=== PATIENT | male | born 1975 | race Caucasian/White ===

== ENCOUNTER 2020-06-10 12:52 | Inpatient (IN) | payer MEDICAID, OTHER ==
--- NOTE | 2020-06-10 13:41 | ED ---
Psych HPI - General Chief Complaint: Psychiatric Symptoms Stated Complaint: Mental Health Time Seen by Provider: 06/10/20 13:19 Source: patient, police Mode of arrival: ambulatory - History of Present Illness Initial Comments: Patient is a 44-year-old male presenting to emergency Department for psychiatric evaluation. Patient is petitioned by the shelter staff. Per officer, patient has been in shelter for several weeks and he has been delusional where he is rambling on and on with he symptoms. Patient was admitted be today he continues to have the similar behavioral patterns. Patient is apparently not diagnosed with any psychiatric conditions and does not take any psychiatric medications. Patient states he is here to Hospital because he has a "stitch in the abdomen that is coming out and it is infected." He denies any homicidal, suicidal thoughts or ideations at this time. - Related Data Home Medications Medication Instructions Recorded Confirmed No Known Home Medications 06/10/20 06/10/20 Allergies Allergy/AdvReac Type Severity Reaction Status Date / Time Penicillins Allergy Swelling Verified 06/10/20 14:32 Review of Systems ROS Statement: Those systems with pertinent positive or pertinent negative responses have been documented in the HPI. ROS Other: All systems not noted in ROS Statement are negative. 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 History of Any Multi-Drug Resistant Organisms: None Reported Past Surgical History: No Surgical Hx Reported Past Anesthesia/Blood Transfusion Reactions: No Reported Reaction Past Psychological History: ADD/ADHD Smoking Status: Former smoker Past Alcohol Use History: None Reported Past Drug Use History: None Reported - Past Family History Mother Family Medical History: Cancer Additional Family Medical History / Comment(s): BREAST General Exam Limitations: no limitations General appearance: alert, in no apparent distress Head exam: Present: atraumatic, normocephalic, normal inspection Eye exam: Present: normal appearance, PERRL, EOMI Pupils: Present: normal accommodation. Absent: unequal, miosis ENT exam: Present: normal exam, normal oropharynx, mucous membranes moist, TM's normal bilaterally, normal external ear exam Neck exam: Present: normal inspection, full ROM. Absent: tenderness Respiratory exam: Present: normal lung sounds bilaterally. Absent: respiratory distress, wheezes, rales Cardiovascular Exam: Present: regular rate, normal rhythm, normal heart sounds GI/Abdominal exam: Present: soft (No signs of infection.). Absent: distended, tenderness, guarding Extremities exam: Present: normal inspection, full ROM, normal capillary refill. Absent: tenderness Back exam: Present: normal inspection, full ROM. Absent: tenderness, CVA tenderness (R), CVA tenderness (L) Neurological exam: Present: alert, oriented X3, CN II-XII intact, normal gait Psychiatric exam: Present: normal affect Skin exam: Present: warm, dry, intact, normal color. Absent: rash Course Vital Signs 06/10/20 12:57 Temperature 98.0 F Pulse Rate 74 Respiratory 18 Rate Blood Pressure 152/85 O2 Sat by Pulse 97 Oximetry Medical Decision Making - Medical Decision Making patient is a 44-year-old male presenting to the emergency department for psychiatric evaluation. Patient is currently in shelter and has been delusional according to the facility staff. Physical examination is unremarkable. Patient continues rambling about unrelated subjects. EPS evaluated patient and will admit for further psychiatric management. Patient is petition. completed a certification. Patient given Ativan and Geodon. UA unremarkable. Urine drug screen positive for marijuana. - Lab Data Lab Results 06/10/20 Range/Units 14:36 Urine Color Yellow Urine Appearance Clear (Clear) Urine pH 6.0 (5.0-8.0) Ur Specific [place] 1.022 (1.001-1.035) Urine Protein Negative (Negative) Urine Glucose (UA) Negative (Negative) Urine Ketones Negative (Negative) Urine Blood Negative (Negative) Urine Nitrite Negative (Negative) Urine Bilirubin Negative (Negative) Urine Urobilinogen <2.0 (<2.0) mg/dL Ur Leukocyte Esterase Negative (Negative) Urine Opiates Screen Not Detected (NotDetected) Ur Oxycodone Screen Not Detected (NotDetected) Urine Methadone Screen Not Detected (NotDetected) Ur Propoxyphene Screen Not Detected (NotDetected) Ur Barbiturates Screen Not Detected (NotDetected) U Tricyclic Antidepress Not Detected (NotDetected) Ur Phencyclidine Scrn Not Detected (NotDetected) Ur Amphetamines Screen Not Detected (NotDetected) U Methamphetamines Scrn Not Detected (NotDetected) U Benzodiazepines Scrn Not Detected (NotDetected) Urine Cocaine Screen Not Detected (NotDetected) U Marijuana (THC) Screen Detected H (NotDetected) Disposition Clinical Impression: Acute psychosis Disposition: ADMITTED IP TO THIS HOSP Condition: Fair Is patient prescribed a controlled substance at d/c from ED?: No Referrals: None,Stated [Primary Care Provider] - 1-2 days Time of Disposition: 17:18
[2020-06-10 14:49] LABS: Appearance,Urine Clear (Clear); Bilirubin,Urine Negative (Negative); Blood,Urine Negative (Negative); Color,Urine Yellow; Glucose,Urine (UA) Negative (Negative); Ketones,Urine Negative (Negative); Leukocyte Esterase,Urine Negative (Negative); Nitrite,Urine Negative (Negative); Protein,Urine Negative (Negative); Specific Gravity,Urine 1.022 (1.001-1.035); Urobilinogen,Urine <2.0 mg/dL (<2.0)
[2020-06-10 15:02] LABS: Amphetamine Screen,Urine Not Detected (NotDetected); Barbiturate Screen,Urine Not Detected (NotDetected); Benzodiazepines Screen,Urine Not Detected (NotDetected); Cocaine Screen,Urine Not Detected (NotDetected); Methadone Screen, Urine Not Detected (NotDetected); Opiate Screen,Urine Not Detected (NotDetected); Oxycodone Screen, Urine Not Detected (NotDetected); Phencyclidine Screen,Urine Not Detected (NotDetected); Tricyclic Antidepressant,Urine Not Detected (NotDetected); Urn Cannabinoid Scrn Detected (NotDetected)
[2020-06-10] MEDS ORDERED: ZIPRASIDONE 20 MG VIAL IM STA (17:16)
[2020-06-10] MEDS ORDERED: LORazepam 2 MG/ML INJ IM STA (17:16)
[2020-06-10] MEDS ORDERED: LORazepam 1 MG TAB PO PRN (19:42)
[2020-06-10] MEDS ORDERED: ZIPRASIDONE 20 MG VIAL IM PRN (19:42)
[2020-06-10] MEDS ORDERED: MAGNESIUM HYDROXIDE 2,400 MG/10 ML CUP PO PRN (19:42)
[2020-06-10] MEDS ORDERED: ACETAMINOPHEN TAB 325 MG TAB PO PRN (19:42)
[2020-06-10] MEDS ORDERED: MAG HYDROX/AL HYDROX/SIMETH 30 ML CUP PO PRN (19:42)
[2020-06-10] MEDS ORDERED: LORazepam 2 MG/ML INJ IM PRN (19:47)
--- NOTE | 2020-06-10 21:01 | P.HPIM ---
History of Present Illness H&P Date: 06/10/20 Patient is a 44-year-old male with a PMH of tobacco abuse, marijuana abuse, and mild intermittent asthma who was brought into the emergency room from senior care due to strange behavior. The patient was reportedly delusional and was rambling. He was admitted to the mental health unit where he was evaluated earlier today. The patient reported feeling well. When asked about his previous medical conditions, he denied any history including asthma. He reported smoking one pack of cigarettes daily for the past few decades with last cigarette one week ago prior to his incarceration. Also reported smoking marijuana daily until his incarceration. Denied any additional complaints. Denied chest pain, shortness of breath, fever, chills, cough. Also denied nausea, vomiting, abdominal pain, or diarrhea. Denied taking any medications at home. Review of Systems Pertinent positives and negatives as discussed in HPI, a complete review of systems was performed and all other systems are negative. 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 History of Any Multi-Drug Resistant Organisms: None Reported Past Surgical History: No Surgical Hx Reported Past Anesthesia/Blood Transfusion Reactions: No Reported Reaction Past Psychological History: ADD/ADHD Smoking Status: Former smoker Past Alcohol Use History: None Reported Past Drug Use History: None Reported - Past Family History Mother Family Medical History: Cancer Additional Family Medical History / Comment(s): BREAST Medications and Allergies Home Medications Medication Instructions Recorded Confirmed Type No Known Home Medications 06/10/20 06/10/20 History Allergies Allergy/AdvReac Type Severity Reaction Status Date / Time Penicillins Allergy Swelling Verified 06/10/20 14:32 Physical Exam Vitals: Vital Signs Temp Pulse Resp BP Pulse Ox 06/10/20 12:57 98.0 F 74 18 152/85 97 Intake and Output 06/10/20 06/10/20 06/10/20 06:59 14:59 22:59 Other: Weight 63.503 kg General: non toxic, no distress, appears at stated age, normal weight Derm: no unusual rashes/lesions no unusual ecchymoses, warm, dry Head: atraumatic, normocephalic, symmetric Eyes: EOMI, no lid lag, anicteric sclera, pupils equal round reactive to light ENT: Nose and ears atraumatic, no thrush, no pharyngeal erythema Neck: No thyromegaly, no cervical lymphadenopathy, trachea midline, supple Mouth: no lip lesion, mucus membranes moist Cardiovascular: S1S2 reg, no murmur, positive posterior tibial pulse bilateral, no edema, capillary refill less than 2 seconds Lungs: CTA bilateral, no rhonchi, no rales , no accessory muscle use Abdominal: soft, nontender to palpation, no guarding, no appreciable orga nomegaly, normal bowel sounds Ext: no gross muscle atrophy, muscle strength 5 out of 5 in all 4 extremities grossly, no contractures, Neuro: CN II-XI grossly intact, light touch intact all 4 extremities, finger to nose within normal limits, Psych: Alert, oriented, guarded affect Results Labs: Abnormal Lab Results - Last 24 Hours (Table) 06/10/20 Range/Units 14:36 U Marijuana (THC) Screen Detected H (NotDetected) Assessment and Plan Plan: Tobacco and marijuana abuse -Advised on the importance of cessation -Nicotine patch when necessary Psychosis -As per psychiatry Thank you for allowing us to participate in the care of this patient. We will follow peripherally. Do not hesitate to contact us with questions. Someone can be reached from the [facility] [place] [place] at all hours of the day at [phone].
[2020-06-10] MEDS: NICOTINE 14MG/24HR PATCH TRANSDERM SCH (21:13)
[2020-06-11] MEDS: NICOTINE 14MG/24HR PATCH TRANSDERM SCH (08:51)
[2020-06-11 09:24] LABS: Basophils # (A) 0.1 k/uL (0-0.2); Basophils % (A) 1 %; Eosinophils # (A) 0.1 k/uL (0-0.7); Eosinophils % (A) 1 %; HCT 48.2 % (39.0-53.0); HGB 15.7 gm/dL (13.0-17.5); Lymphocytes # (A) 2.3 k/uL (1.0-4.8); Lymphocytes % (A) 25 %; MCH 29.6 pg (25.0-35.0); MCHC 32.7 g/dL (31.0-37.0); MCV 90.6 fL (80.0-100.0); Mean Platelet Volume 7.6; Monocytes # (A) 0.4 k/uL (0-1.0); Monocytes % (A) 4 %; Neutrophils # (A) 6.3 k/uL (1.3-7.7); Neutrophils % (A) 67 %; Platelet Count 293 k/uL (150-450); RBC 5.32 m/uL (4.30-5.90); RDW 13.8 % (11.5-15.5); WBC 9.3 k/uL (3.8-10.6)
[2020-06-11 09:33] LABS: ALT 20 U/L (4-49); AST 22 U/L (17-59); African American GFR (CKD) >90 (>60 ml/min/1.73 sqM); Albumin 4.3 g/dL (3.5-5.0); Alkaline Phosphatase 65 U/L (38-126); Anion Gap 10 mmol/L; Blood Urea Nitrogen 18 mg/dL (9-20); Calcium 9.5 mg/dL (8.4-10.2); Carbon Dioxide 23 mmol/L (22-30); Chloride 107 mmol/L (98-107); Cholesterol 176 mg/dL (<200); Glucose 189 mg/dL (74-99); HDL Cholesterol 63 mg/dL (40-60); LDL Cholesterol,Calculated 90 mg/dL (0-99); Non-African American GFR(CKD) >90 (>60 ml/min/1.73 sqM); Potassium 4.8 mmol/L (3.5-5.1); Sodium 140 mmol/L (137-145); Total Bilirubin 0.4 mg/dL (0.2-1.3); Total Protein 6.8 g/dL (6.3-8.2); Triglycerides 116 mg/dL (<150)
--- NOTE | 2020-06-11 12:09 | CT ---
EXAMINATION TYPE: CT brain wo con DATE OF EXAM: 06/11/2020 COMPARISON: None. HISTORY: First episode psychosis CT DLP: 1028 mGycm. Automated Exposure Control for Dose Reduction was Utilized. TECHNIQUE: CT scan of the head is performed without contrast. FINDINGS: There is no acute intracranial hemorrhage, mass effect, or midline shift identified. The ventricles and sulci are within normal limits in size. Carbajal-white matter differentiation is maintai porsche. Mild to moderate mucosal thickening in the periphery of the left frontal sinus. Mild mucosal thi ckening throughout the ethmoid sinuses bilaterally. Fairly severe mucosal thickening in the right max illary sinus. Globes are intact bilaterally. IMPRESSION: No acute intracranial hemorrhage or midline shift is seen.
--- NOTE | 2020-06-11 12:10 | P.HP ---
Psychiatric H&P - . H&P Date: 06/11/20 History & Physical: Allergies Allergy/AdvReac Type Severity Reaction Status Date / Time Penicillins Allergy Swelling Verified 06/10/20 14:32 Vital Signs Temp 98.1 F 06/11/20 06:57 Pulse 73 06/11/20 06:57 Resp 16 06/11/20 06:57 BP 112/71 06/11/20 06:57 Pulse Ox 97 06/10/20 21:50 Intake & Output 06/10/20 06/11/20 06/11/20 18:59 06:59 18:59 Weight 63.503 kg 56.4 kg Laboratory Last Values WBC 9.3 k/uL (3.8-10.6) 06/11/20 09:00 RBC 5.32 m/uL (4.30-5.90) 06/11/20 09:00 Hgb 15.7 gm/dL (13.0-17.5) 06/11/20 09:00 Hct 48.2 % (39.0-53.0) 06/11/20 09:00 MCV 90.6 fL (80.0-100.0) 06/11/20 09:00 MCH 29.6 pg (25.0-35.0) 06/11/20 09:00 MCHC 32.7 g/dL (31.0-37.0) 06/11/20 09:00 RDW 13.8 % (11.5-15.5) 06/11/20 09:00 Plt Count 293 k/uL (150-450) 06/11/20 09:00 Neutrophils % 67 % 06/11/20 09:00 Lymphocytes % 25 % 06/11/20 09:00 Monocytes % 4 % 06/11/20 09:00 Eosinophils % 1 % 06/11/20 09:00 Basophils % 1 % 06/11/20 09:00 Neutrophils # 6.3 k/uL (1.3-7.7) 06/11/20 09:00 Lymphocytes # 2.3 k/uL (1.0-4.8) 06/11/20 09:00 Monocytes # 0.4 k/uL (0-1.0) 06/11/20 09:00 Eosinophils # 0.1 k/uL (0-0.7) 06/11/20 09:00 Basophils # 0.1 k/uL (0-0.2) 06/11/20 09:00 Sodium 140 mmol/L (137-145) 06/11/20 09:00 Potassium 4.8 mmol/L (3.5-5.1) 06/11/20 09:00 Chloride 107 mmol/L (98-107) 06/11/20 09:00 Carbon Dioxide 23 mmol/L (22-30) 06/11/20 09:00 Anion Gap 10 mmol/L 06/11/20 09:00 BUN 18 mg/dL (9-20) 06/11/20 09:00 Creatinine 0.86 mg/dL (0.66-1.25) 06/11/20 09:00 Est GFR (CKD-EPI)AfAm >90 (>60 ml/min/1.73 sqM) 06/11/20 09:00 Est GFR (CKD-EPI)NonAf >90 (>60 ml/min/1.73 sqM) 06/11/20 09:00 Glucose 189 mg/dL (74-99) H 06/11/20 09:00 Calcium 9.5 mg/dL (8.4-10.2) 06/11/20 09:00 Total Bilirubin 0.4 mg/dL (0.2-1.3) 06/11/20 09:00 AST 22 U/L (17-59) 06/11/20 09:00 ALT 20 U/L (4-49) 06/11/20 09:00 Alkaline Phosphatase 65 U/L (38-126) 06/11/20 09:00 Total Protein 6.8 g/dL (6.3-8.2) 06/11/20 09:00 Albumin 4.3 g/dL (3.5-5.0) 06/11/20 09:00 Triglycerides 116 mg/dL (<150) 06/11/20 09:00 Cholesterol 176 mg/dL (<200) 06/11/20 09:00 LDL Cholesterol, Calc 90 mg/dL (0-99) 06/11/20 09:00 HDL Cholesterol 63 mg/dL (40-60) H 06/11/20 09:00 TSH 1.830 mIU/L (0.465-4.680) 06/11/20 09:00 Urine Color Yellow 06/10/20 14:36 Urine Appearance Clear (Clear) 06/10/20 14:36 Urine pH 6.0 (5.0-8.0) 06/10/20 14:36 Ur Specific [place] 1.022 (1.001-1.035) 06/10/20 14:36 Urine Protein Negative (Negative) 06/10/20 14:36 Urine Glucose (UA) Negative (Negative) 06/10/20 14:36 Urine Ketones Negative (Negative) 06/10/20 14:36 Urine Blood Negative (Negative) 06/10/20 14:36 Urine Nitrite Negative (Negative) 06/10/20 14:36 Urine Bilirubin Negative (Negative) 06/10/20 14:36 Urine Urobilinogen <2.0 mg/dL (<2.0) 06/10/20 14:36 Ur Leukocyte Esterase Negative (Negative) 06/10/20 14:36 Urine Opiates Screen Not Detected (NotDetected) 06/10/20 14:36 Ur Oxycodone Screen Not Detected (NotDetected) 06/10/20 14:36 Urine Methadone Screen Not Detected (NotDetected) 06/10/20 14:36 Ur Propoxyphene Screen Not Detected (NotDetected) 06/10/20 14:36 Ur Barbiturates Screen Not Detected (NotDetected) 06/10/20 14:36 U Tricyclic Antidepress Not Detected (NotDetected) 06/10/20 14:36 Ur Phencyclidine Scrn Not Detected (NotDetected) 06/10/20 14:36 Ur Amphetamines Screen Not Detected (NotDetected) 06/10/20 14:36 U Methamphetamines Scrn Not Detected (NotDetected) 06/10/20 14:36 U Benzodiazepines Scrn Not Detected (NotDetected) 06/10/20 14:36 Urine Cocaine Screen Not Detected (NotDetected) 06/10/20 14:36 U Marijuana (THC) Screen Detected (NotDetected) H 06/10/20 14:36 06/11/20 12:03 IDENTIFYING DATA: Patient is a 44-year-old male who is currently homeless coming from local halfway single has no kids unemployed. HPI: Patient presented to the hospital transferred from the local halfway on petition by halfway staff for delusional thinking and rambling along with bizarre thoughts. Patient was evaluated in the ER and admitted to not having a specific psychiatric diagnosis and not being on any psychiatric medications. According to ER report patient stated that he was in the hospital for having a "stitch in the abdomen that is coming out". Patient was positive for THC on his UDS and a negative UA. Patient was admitted to mental health for for further evaluation and treatment. Patient was seen today and appeared to have poor hygiene and grooming however was directable and agreeable therapist speech in the office. He claims that he has been in halfway for 7-8 days however did not elaborate why he was in halfway and what the charges were. She had pressured speech, endorsed paranoia and was grandiose. Patient had several loosely formed delusions. He claims that the government will be "dumping money into this facility and I want him to do it". He rambles and was illogical at times. He spoke about his sister going on the news to speak about the hospital. He also claims that at the Police Department "they didn't know what to do with me I was ripping the place out". Claims that he needs anger management and does not take any medications. Patient claimed that his mood is "fine" and denies any anxiety today. He states that his sleep and appetite are fair. He denies any nightmares. Patient denies any suicidal or homicidal ideations intent or plan. At this time patient denies any auditory or visual hallucinations. Patient has a flight of ideas. Patient admits to using marijuana as listed above does smoke cigarettes. PAST PSYCHIATRIC HISTORY: Patient states that he does not have a formal psychiatric diagnosis. Patient denies being on any psychiatric medications. He did state that he was in a psychiatric hospital over 20 years ago for a overdose on his medications. Patient denies any psychiatric outpatient follow-up. PMH: GERD and asthma ALLERGIES: as per EMR CHEMICAL DEPENDENCY HISTORY: as per HPI FAMILY PSYCHIATRIC/SUBSTANCE USE HISTORY: denies SOCIAL HISTORY: Patient was born and raised in [facility] and claims that he did some college. He is currently homeless and unemployed has no kids and was coming from the local halfway. Patient does have a extensive legal history however is not able to elaborate on it MENTAL STATUS EXAM: General Appearance: Patient appears to be stated age is short in stature, several tattoos , alert, difficult to redirect loud and impulsive. Patient appears to have poor hygiene and grooming. Behavior: Patient is seated without any agitated behavior. Loud and impulsive. Speech: Patient's speech is pressured Mood/Affect: Patient reports their mood is "okay", affect is congruent and labile Suicidality/Homicidality: Patient denies having any homicidal ideation intent or plan. Denies any suicidal ideations intent or plan Perceptions: Patient denies any visual hallucinations and denies any auditory hallucinations Though content/process: Patient is endorsing several loosely formed delusions, grandiosity. Bizarre content. Rambles. Tangential/circumstantial. Memory and concentration: AOX3, grossly intact for the purposes of this session. Can spell "WORLD" backwards Judgment and insight: poor/impulsive STRENGTHS/WEAKNESSES: strength is that patient is resilient. Weakness is that patient has poor judgment and is impulsive INTELLECT: average IMPRESSIONS: Psychosis unspecified Cannabis use disorder Nicotine dependence PLAN: -Patient is admitted under involuntary status to MHU for stabilization of psychiatric symptoms and safety. Patient has not signed medication consent and is placed in patient's chart. A second certification was completed and along with petition will be filed for court. -Medications : Will start patient on Abilify 5 mg daily for mood stabilization/psychosis. Plan to titrate up as needed. -Ativan and Geodon PRN for agitation/aggression -Patient was counselled on substance abuse and expressed no desire to cut back on his use -Patient was informed of the risks, benefits and side effects of the medication and patient verbally consented to taking the medications. Patient signed med consent form and was placed in chart. -Internal Medicine consult to perform medical evaluation and physical. -NRT - nicotine patch -SW on board for discharge planning. Encourage patient to participate in groups to work on coping skills. Patient is on a halfway hold and will be discharged back to halfway once he is psychiatrically stabilized. We'll await for deferral and full court hearing. 06/11/20 12:07
[2020-06-11] MEDS: ARIPiprazole 5 MG TAB PO SCH ×2 (12:19→12:22)
[2020-06-12] MEDS: NICOTINE 14MG/24HR PATCH TRANSDERM SCH (09:01)
[2020-06-12] MEDS: ARIPiprazole 5 MG TAB PO SCH (09:01)
--- NOTE | 2020-06-12 10:21 | P.PN ---
Progress Note - Text Progress Note Date: 06/12/20 Interval History: Patient was seen today for psychiatric follow-up and when marketing writer entered frederic rosario's room he was laying down rambling loudly and speaking to himself. Patient was directable and agreeable to speak with marketing writer in the office. Patient continues to have pressured speech, racing thoughts and endorsed several delusions. He continues to state that he is "not getting any answers" as to what he is charged with and why he is not hospital. He continues to endorse grandiosity did speak about his family and their power. He also continues to threaten the hospital financially. He also spoke about his "[place] heritage". Patient was loose in associations and illogical at times. Difficult to redirect in conversation. He states that he slept well last night and has a fair appetite. When asked about his medications he states that "I don't need that I'm not a psych patient" and patient has not been taking his medications. At this time patient denies any suicidal or homical ideations, intent or plan. Patient denies any auditory, visual hallucinations and denies any paranoia or delusions. Mental Status Exam: General Appearance: Patient appears to be stated age is short in stature, several tattoos, alert, difficult to redirect loud and impulsive. Patient appears to have poor hygiene and grooming. Behavior: Patient is seated without any agitated behavior. Loud and impulsive. Speech: Patient's speech is pressured, flight of ideas. Mood/Affect: Patient reports their mood is "ok", affect is congruent and labile Suicidality/Homicidality: Patient denies having any homicidal ideation intent or plan. Denies any suicidal ideations intent or plan Perceptions: Patient denies any visual hallucinations and denies any auditory hallucinations Though content/process: Patient is endorsing several loosely formed delusions, grandiosity. Bizarre content. Rambles. Tangential/circumstantial. Memory and concentration: AOX3, grossly intact for the purposes of this session Judgment and insight: poor/impulsive Assessment Psychosis unspecified Cannabis use disorder Nicotine dependence Plan: -Patient continues to meet criteria for inpatient psychiatric admission for symptom stabilization and safety. Patient has not signed medication consent and was placed in patient's chart. -Medications: Continue with Abilify 5 mg daily for mood stabilization/psychosis. Patient is currently not taking medications. -When necessary Ativan and Geodon for agitation/aggression. -NRT - nicotine patch -SW on board for discharge planning. Encouraged the patient to participate in milieu. Patient is on a group home hold and will be discharged back to group home once he is psychiatrically stabilized. We'll await for deferral and full court hearing.
[2020-06-12] MEDS ORDERED: ZIPRASIDONE 20 MG VIAL IM ONE (15:37)
[2020-06-13] MEDS: NICOTINE 14MG/24HR PATCH TRANSDERM SCH (09:14)
[2020-06-13] MEDS: ARIPiprazole 5 MG TAB PO SCH (09:14)
--- NOTE | 2020-06-13 10:34 | P.PN ---
Progress Note - Text Progress Note Date: 06/13/20 Interval History: Patient was seen today sitting in all group and was directable and agreeable to speak with check writer in the office. Patient appeared to be mildly calmer and more polite with check writer initially however patient continues to have pressured speech, racing thoughts and endorsed several delusions. He continues to endorse grandiosity. He spoke about his father being corrupt with the police department. He also spoke about "[place] wars". He spoke also about being in the hospital for "protective custody" and believing that there are other conspiracies against him. Patient was getting loud at times and pointing several times at check writer and at the ground. He also spoke about his "[place] heritage". Patient was loose in associations and illogical at times. Difficult to redirect in conversation. He states that he slept well last night and has a fair appetite. He is continuing to refuse medications while on the unit. At this time patient denies any suicidal or homical ideations, intent or plan. Patient denies any auditory, visual hallucinations and denies any paranoia or delusions. Mental Status Exam: General Appearance: Patient appears to be stated age is short in stature, several tattoos, alert, difficult to redirect loud and impulsive. Patient appears to have poor hygiene and grooming. Behavior: Patient is seated without any agitated behavior. Loud and impulsive. Speech: Patient's speech is pressured, flight of ideas. Mood/Affect: Patient reports their mood is "fine", affect is incongruent and labile Suicidality/Homicidality: Patient denies having any homicidal ideation intent or plan. Denies any suicidal ideations intent or plan Perceptions: Patient denies any visual hallucinations and denies any auditory hallucinations Though content/process: Patient is endorsing several loosely formed delusions, grandiosity. Bizarre content. Rambles. Tangential/circumstantial. Memory and concentration: AOX3, grossly intact for the purposes of this session Judgment and insight: poor/impulsive Assessment Psychosis unspecified Cannabis use disorder Nicotine dependence Plan: -Patient continues to meet criteria for inpatient psychiatric admission for symptom stabilization and safety. Patient has not signed medication consent and was placed in patient's chart. -Medications: Continue with Abilify 5 mg daily for mood stabilization/psychosis. Patient is currently not taking medications. -When necessary Ativan and Geodon for agitation/aggression. -NRT - nicotine patch -SW on board for discharge planning. Encouraged the patient to participate in milieu. Patient is on a correction hold and will be discharged back to correction once he is psychiatrically stabilized. Patient will have deferral date set for today.
[2020-06-14] MEDS: ARIPiprazole 5 MG TAB PO SCH (09:22)
[2020-06-14] MEDS: NICOTINE 14MG/24HR PATCH TRANSDERM SCH (09:22)
[2020-06-14] MEDS: OLANZapine 10 MG TAB PO SCH ×2 (15:16→21:49)
--- NOTE | 2020-06-14 22:04 | PN ---
PROGRESS NOTE DATE OF SERVICE: 06/14/2020. CHIEF COMPLAINT: The patient was petitioned by care home staff for delusional thinking and bizarre thoughts. INTERVAL HISTORY: The patient has been doing fair. He continues to show significant psychotic thinking. He had a fairly intense day yesterday. He comes out on the unit. He wanders about. He will frequently talk about different issues much of which seems to be delusional. At times, he will have some fairly intense self talk. He attends groups though he tends to be disconnected from much of what is discussed in groups. He has required p.r.n.'s. He slept fair last night. Today he has been up. He continues to wander about. I refer the reader to the group note of the exercise leisure education group of this morning for documentation of his function and thought process in the group. When I talked to the patient, he rambled at length about any number of issues he was having. It was difficult to follow his train of thought. He made references to suing the hospital and other issues about a past surgery. He made references to having turned in "bad entry level sales consultant." He acknowledges that he has not been taking medications, feeling he did not really need them, though he was willing to consider medications by the end of our discussion. MENTAL STATUS: Patient was quite restless. He spoke spontaneously and rambled about 1 issue or another. He had flight of ideas and loose association. He jumped from subject to subject. It was very difficult to follow his train of thought. His affect was intense. His mood dysphoric. He was somewhat distressed. He continues to show delusional thinking with paranoia. It was difficult to assess for thoughts of harm to self or others. He seemed to be oriented and aware of his situation and surroundings. ASSESSMENT: I will continue the current diagnosis and treatment plan. We will continue to make efforts to engage the patient in individual and group therapeutic activities. The patient was engrained to take medications and then as such I started the patient on Zyprexa 10 mg twice a day. He has not been taking the Abilify. He has significant psychotic symptoms and thus I would push for more sorted doses of antipsychotic. I reviewed the medication issues with the patient. I talked about indication and namely to help his thought process and discussed potential side effects including making some brief references to metabolics and movement disorder. The patient did not clearly keep up with the conversation, so I tended to keep that part of the discussion limited. We will focus on stabilization and discharge planning. CALLY / MILEN: [id number] /
[2020-06-15] MEDS: OLANZapine 10 MG TAB PO SCH (08:55)
[2020-06-15] MEDS: NICOTINE 14MG/24HR PATCH TRANSDERM SCH (08:55)
[2020-06-15] MEDS ORDERED: OLANZapine 10 MG TAB PO ONE (16:00)
--- NOTE | 2020-06-15 16:50 | PN ---
PROGRESS NOTE DATE OF SERVICE: 06/15/2020. CHIEF COMPLAINT: The patient was petition by [facility] staff for delusional thinking and bizarre thoughts. INTERVAL HISTORY: Patient has been doing fair. He continues to show significant distress and psychotic thinking. Yesterday, he was out in the day area. Much of the time he will wander about the unit. He will interact with others. He has attended some of the groups, though at times he can be somewhat intense and needing staff support to stay on track. He said he slept well last night. Today, he has been up. He has not attended 3 of the groups so far today though was on his way to the last group of the day. He continues to be focused on hoping to be discharged soon. When he talks about circumstances of his coming into the hospital, he is adamant about the idea that he was not hallucinating and that all that he believed he observed was real. I had a telephone contact with the patient's aunt with whom he was living. Her name is Janice Rossi ). She notes that the patient was showing significant psychotic symptoms over a considerable period of time when he was living with her. She ended up having to have him move out of the home because of the risks to his cousin's children who were in the house. She noted that he had bizarre behavior like crawling under the tables, talking about a conspiracy sees and militias. He talked about how he was in protective custody. He notes that he would get quite intense and agitated when he would get into issues related to his perceived experiences. For the patient's part, when I talked to him, he was quite insistent on the idea that all of what he talked about was real and that he was in fact not hallucinating. He did make the statement that he could understand his aunt would be concerned because he was in protective custody, but she was not and thus she might be in some perceived danger. For the patient's part, he said he has had some headache today and a few other vague symptoms that he thought might relate to the medication. On the other hand, he said he was comfortable continuing to take the medication. When I talked about the option of a long-acting injectable, he was accepting of that as well. He appears to tolerate his psychotropic medications. MENTAL STATUS: Patient was quite restless. He talked quite a bit during the interview. He rambled and went into all sorts of thoughts about the delusional material he has been referring to. He had pressured speech and flight of ideas. His affect was intense. A few different points during the interview, he had an angry manner, though he would come out of that fairly calm. His mood was dysphoric. He was significantly distressed. He had delusional thoughts. At one point when I was talking to his Aunt on the telephone, he had his head down and was seemingly deeply engaged in a conversation with himself. He did not voice thoughts of harm to self or others, though he does express paranoid delusions which could potentially create risks in regard to harm. He was oriented and alert. ASSESSMENT: I will continue the current diagnosis and treatment plan. I will increase the patient's Zyprexa to 15 mg twice a day. In addition, I will start the patient on Invega 6 mg a day. The aim of Invega is to switch him over to a long-acting injectable. Patient continues to show significant psychotic symptoms. At this point, I feel it is appropriate to be assertive with medications and continue him on 2 antipsychotic medications until we see some progression and improvement with his medications. It is noteworthy that when the patient learned that his aunt was uncomfortable at this point with his coming to live there, he said he would accept being in the hospital longer to make sure everything was okay with his aunt. He said if he needed to be in the hospital another week he could see that would not be unreasonable. He has been cooperative with his medications. We will focus on stabilization and discharge planning. MMODL / MILEN: [id number] /
[2020-06-15] MEDS: PALIPERIDONE 6 MG TAB.ER.24 PO SCH (16:56)
[2020-06-15] MEDS: OLANZapine 5 MG TAB PO SCH (21:58)
[2020-06-16] MEDS: NICOTINE 14MG/24HR PATCH TRANSDERM SCH (10:14)
[2020-06-16] MEDS: PALIPERIDONE 6 MG TAB.ER.24 PO SCH (10:15)
[2020-06-16] MEDS: OLANZapine 5 MG TAB PO SCH (10:15)
--- NOTE | 2020-06-16 10:37 | P.PN ---
Progress Note - Text Progress Note Date: 06/16/20 Interval History: Patient was seen today in his room and was directable and agreeable to speak w ith greeting card writer. Patient continues to ramble, have racing thoughts and endorsed several delusions. He continues to be grandiose and his thought content. 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 He continues to be demanding about his medications and claims that he does not need medications even though he was "tricked into signing that form" by his grades 1 6 tutor. Patient has been taking medications as of yesterday and this morning. Patient claims that the Zyprexa was making him too tired and was agreeable to have it reduced. He continues to endorse paranoia and is impulsive. Patient was getting loud at times. Patient was loose in associations and illogical at times. Difficult to redirect in conversation. He states that he slept well last night and has a fair appetite but feels oversedated today. At this time patient denies any suicidal or homical ideations, intent or plan. Patient denies any auditory, visual hallucinations and denies any paranoia or delusions. Mental Status Exam: General Appearance: Patient appears to be stated age is short in stature, severa l tattoos, alert, difficult to redirect loud and impulsive. Patient appears to have poor hygiene and grooming. Behavior: Patient is seated without any agitated behavior. Loud and impulsive. Speech: Patient's speech is pressured, flight of ideas. Mood/Affect: Patient reports their mood is "fine", affect is incongruent and labile Suicidality/Homicidality: Patient denies having any homicidal ideation intent or plan. Denies any suicidal ideations intent or plan Perceptions: Patient denies any visual hallucinations and denies any auditory hallucinations Though content/process: Patient is endorsing several loosely formed delusions, grandiosity. Bizarre content. Rambles. Tangential/circumstantial. Memory and concentration: AOX3, grossly intact for the purposes of this session Judgment and insight: poor/impulsive Assessment Psychosis unspecified Cannabis use disorder Nicotine dependence Plan: -Patient continues to meet criteria for inpatient psychiatric admission for symptom stabilization and safety. Patient has not signed medication consent and was placed in patient's chart. Patient ended up deferring cord and agreeing to treatment. -Medications: Continue with paliperidone 6 mg daily mood stabilization/psychosis. Zyprexa was decreased down to 5 mg daily at bedtime for mood stabilization/insomnia. -When necessary Ativan and Geodon for agitation/aggression. -NRT - nicotine patch -SW on board for discharge planning. Encouraged the patient to participate in milieu. Patient is on a assisted hold and will be discharged back to assisted once he is psychiatrically stabilized. Patient ended up deferring cord and agreeing to treatment.
[2020-06-16] MEDS ORDERED: OLANZapine 5 MG TAB PO SCH (21:00)
[2020-06-17 04:53] VITALS: RESP 16
[2020-06-17] MEDS: NICOTINE 14MG/24HR PATCH TRANSDERM SCH (08:47)
[2020-06-17] MEDS: PALIPERIDONE 6 MG TAB.ER.24 PO SCH (08:47)
[2020-06-17] MEDS ORDERED: PALIPERIDONE 3 MG TAB.ER.24 PO STA (13:22)
--- NOTE | 2020-06-17 13:28 | P.PN ---
Progress Note - Text Progress Note Date: 06/17/20 Interval History: Patient was seen today in his room and was directable and agreeable to speak w ith copywriter. Patient continues to ramble, have racing thoughts today however this has been improving and patient has been demonstrating less flight of ideas. Patient continues to be preoccupied with his father doing "illegal things" and patient appears to be more directable today and calmer with copywriter. Patient also appeared to be more agreeable to taking medication and states that he has been sleeping better at nighttime and does not feel over sedated today. Patient reached into his belongings and took out several pictures that he wanted to show copywriter of his brother and his family members. Patient has been taking medications as of yesterday and this mornin. Patient more goal oriented and less paranoid today. Difficult to redirect in conversation. He states that he slept well last night. At this time patient denies any suicidal or homical ideations, intent or plan. Patient denies any auditory, visual hallucinations and denies any paranoia or delusions. Mental Status Exam: General Appearance: Patient appears to be stated age is short in stature, several tattoos, alert, difficult to redirect. Patient appears to have improving hygiene and grooming. Behavior: Patient is seated without any agitated behavior. Mildly more directable today and less impulsive. Speech: Patient's speech is pressured, flight of ideas, improving mildly. Mood/Affect: Patient reports their mood is "fine", affect is incongruent Suicidality/Homicidality: Patient denies having any homicidal ideation intent or plan. Denies any suicidal ideations intent or plan Perceptions: Patient denies any visual hallucinations and denies any auditory hallucinations Though content/process: Patient is endorsing several loosely formed delusions, grandiosity, improving mildly today. Rambles. Tangential/circumstantial. Memory and concentration: AOX3, grossly intact for the purposes of this session Judgment and insight: poor/impulsive, improving mildly Assessment Psychosis unspecified Cannabis use disorder Nicotine dependence Plan: -Patient continues to meet criteria for inpatient psychiatric admission for symptom stabilization and safety. Patient has not signed medication consent and was placed in patient's chart. Patient ended up deferring cord and agreeing to treatment. -Medications: increased paliperidone 9 mg daily mood stabilization/psychosis. Zyprexa was decreased down to 2.5 mg daily at bedtime for mood stabilization/insomnia. -When necessary Ativan and Geodon for agitation/aggression. -NRT - nicotine patch -SW on board for discharge planning. Encouraged the patient to participate in milieu. Patient is on a residential hold and will be discharged back to residential once he is psychiatrically stabilized. Patient ended up deferring court and agreeing to treatment.
[2020-06-17] MEDS ORDERED: OLANZapine 2.5 MG TAB PO SCH (21:00)
[2020-06-18] MEDS: PALIPERIDONE 3 MG TAB.ER.24 PO SCH (09:12)
[2020-06-18] MEDS: NICOTINE 14MG/24HR PATCH TRANSDERM SCH (09:12)
--- NOTE | 2020-06-18 10:00 | P.PN ---
Progress Note - Text Progress Note Date: 06/18/20 Interval History: Patient was seen today near the medication window and appeared to be yelling and agitated towards the medication nurse. Patient was yelling and was furious that she had to take his medications as morning and refused to open up his palm and show the nurse is mouth after taking the medication. Patient was fairly irritable and yelling down the hallway however was directable and agreeable to speak to screen writer in the office. Patient was hyperverbal, tangential and grandiose today. He was threatening to mohini the hospital and screen writer several times for not giving him a covid test. He appeared to be impulsive and intrusive today. He continues to endorse delusions and was demanding discharge and also for the medication nurse to be reprimanded. Patient was not able to answer appropriately about his mood or his night last night with sleep. Patient continued to ramble and was difficult to redirect today and was informed that his medications will be increased. Patient demanded to speak with his intellectual property lawyer and left the interview abruptly. At this time patient denies any suicidal or homical ideations, intent or plan. Patient denies any auditory, visual hallucinations Mental Status Exam: General Appearance: Patient appears to be stated age is short in stature, several tattoos, alert, difficult to redirect. Patient appears to have improving hygiene and grooming. Behavior: Patient is seated without any agitated behavior. Loud, argumentative and impulsive. Speech: Patient's speech is pressured, flight of ideas Mood/Affect: Patient reports their mood is "ok", affect is incongruent and labile today Suicidality/Homicidality: Patient denies having any homicidal ideation intent or plan. Denies any suicidal ideations intent or plan Perceptions: Patient denies any visual hallucinations and denies any auditory hallucinations Though content/process: Patient is endorsing several loosely formed delusions, grandiosity, Rambles. Tangential/circumstantial. Focused on medication nurse. Memory and concentration: AOX3, grossly intact for the purposes of this session Judgment and insight: poor/impulsive Assessment Psychosis unspecified Cannabis use disorder Nicotine dependence Plan: -Patient continues to meet criteria for inpatient psychiatric admission for symptom stabilization and safety. Patient has not signed medication consent and was placed in patient's chart. Patient ended up deferring cord and agreeing to treatment. -Medications: Continue with paliperidone 9 mg daily mood stabilization/psychosis. Zyprexa was discontinued. Will start Depakene liquid 250 mg twice a day for mood stabilization/aggression. -When necessary Ativan and Geodon for agitation/aggression. -NRT - nicotine patch -SW on board for discharge planning. Encouraged the patient to participate in milieu. Patient is on a snf hold and will be discharged back to snf once he is psychiatrically stabilized. Patient ended up deferring court and agreeing to treatment. If patient begins to refuse medications then we'll need to file a demand for hearing immediately.
[2020-06-18] MEDS: VALPROIC ACID ORAL SOLN 250 MG/5 ML CUP PO SCH ×2 (10:23→20:29)
[2020-06-19] MEDS: VALPROIC ACID ORAL SOLN 250 MG/5 ML CUP PO SCH ×2 (08:39→20:46)
[2020-06-19] MEDS: NICOTINE 14MG/24HR PATCH TRANSDERM SCH (08:39)
[2020-06-19] MEDS: PALIPERIDONE 3 MG TAB.ER.24 PO SCH (08:39)
[2020-06-19] MEDS: haloperidoL 5 MG TAB PO SCH ×2 (12:54→20:47)
[2020-06-19] MEDS: BENZTROPINE MESYLATE 1 MG TAB PO SCH ×2 (12:54→20:47)
--- NOTE | 2020-06-19 14:31 | PN ---
PROGRESS NOTE DATE OF SERVICE: 06/19/2020 CHIEF COMPLAINT: The patient was petitioned by prison staff for delusional thinking and bizarre thoughts. INTERVAL HISTORY: Patient continues to be quite intense with psychotic and manic symptoms. He showed continued ups and downs in his mood yesterday. He has periods where he gets quite intense. He is loud much of the time, he wanders the unit. He attended one group yesterday, a note from the group states "patient required increased verbal redirection to engage in appropriate topics of conversation and engage in activities. Patient was inconsistently redirectable." It was documented the patient slept 7 hours last night, today he has been up he continues the same. He wonders about, he gets intense. At times he can have some limited appropriate interactions, at other times he tends to go off in random talk that does not connect to the issues at hand. He continues to have periods of getting loud. He still talks about being in prison as protective custody. He was uncertain about prison issues, though did seem to understand the some point that he would be returning to prison. He talked at length about an idea that his commercial attorney will get his charges dismissed. He also stated that if he had to go back to prison, he would be able to have an employer that he works for boyd him out. He tolerates his psychotropic medications. MENTAL STATUS: Patient sat with quite a bit a restlessness, he gave good eye contact. He talked quite a bit. He had pressured speech and flight of ideas. He made various comments that were tangential. He did respond to some questions appropriately. For the most part he talked in complete sentences. His speech was coherent and goal directed, though for the most part his thoughts were disconnected from the subject at hand. He did; however, seem to pay some attention to discussion of medications and was willing to make appropriate changes. His affect was intense, his mood elevated. He showed moderate degree of distress. He continues to show paranoid thinking and other delusional thoughts. He voiced no thoughts of harm to self or others. Cognition was clear. ASSESSMENT: I will continue the current diagnosis and treatment plan. We had contact with the prison indicating that as far as a long-acting injectable, the only medications that they can manage would be Haldol Decanoate and Prolixin Decanoate. At this point I will switch the patient from Invega to Haldol with the intention of initiating Haldol Decanoate that would be the first step towards aiming the patient back towards outpatient care, which will be through the prison. I will discontinue Invega and start Haldol 10 mg twice a day. I will add Cogentin 1 mg twice a day as well. He continues on Depakote 250 mg twice a day. Highly likely that is a subtherapeutic level, though given that were initiating Haldol, I will defer any changes that medication. I briefly discussed medications with the patient to the extent that he could follow the conversation. We did review issues about movement disorder and metabolic. The patient was in agreement with both short-term use of oral medication. He understood the need was to be sure he is not allergic to the medication. He understood that we would anticipate initiating a long-acting injectable to which he was in agreement. Will focus on stabilization and discharge planning. CALLY / DAIVE: [id number] /
[2020-06-20 07:09] VITALS: BP 121/64; PULSE 67; TEMP 97.8
[2020-06-20] MEDS: BENZTROPINE MESYLATE 1 MG TAB PO SCH ×2 (09:45→20:09)
[2020-06-20] MEDS: VALPROIC ACID ORAL SOLN 250 MG/5 ML CUP PO SCH ×2 (09:46→20:09)
[2020-06-20] MEDS: NICOTINE 14MG/24HR PATCH TRANSDERM SCH (09:46)
[2020-06-20] MEDS: haloperidoL 5 MG TAB PO SCH ×2 (09:46→20:10)
--- NOTE | 2020-06-20 11:43 | PN ---
PROGRESS NOTE DATE OF SERVICE: 06/20/2020 CHIEF COMPLAINT: The patient was petitioned by group home staff for delusional thinking and bizarre thoughts. INTERVAL HISTORY: Patient has been doing fair. He was in his usual state yesterday. He comes out in the day area. He wanders about, he can be loud at times and get intense. He attended one group yesterday. He was characterized as "bizarre, disheveled, animated, tangential, monopolizing, ruminative." He slept well last night, today he has been up, he again has been out in the day area. Staff have noted today that he seems a little quieter and calmer than he has been. He was started on Haldol 10 mg twice a day yesterday in anticipation of receiving Haldol Decanoate. He has not had any problems with the start of the medication. When I saw him today, his first question was asking if I had heard anything about group home. I shared that my understanding is that he will return to group home. It was noteworthy that he said he is in group home because of home invasion. He said that is a strange charge given that it was his home that he was going into. He says he does have some legal support in that regard. It is noteworthy that he did not make any statement all about being in group home due to protective custody. He seemed to accept his situation and understood that when he leaves the hospital he will be returning to group home. He asked when he could anticipate going back to group home. I shared with him that I would suspect it would be until the middle of next week. He had no concern about that. He tolerates his psychotropic medications. MENTAL STATUS: The patient sat with a little restlessness, he gave good eye contact. He answered questions appropriately. His thoughts were clear. His affect was somewhat intense, though less so than previously. His mood was even. He seemed a little distressed, though not to a significant degree. It was noteworthy that he did not voice any clear thoughts that were delusional. He voiced no thoughts of harm. Cognition was clear. ASSESSMENT: I will continue the current diagnosis and treatment plan. I will initiate Haldol Decanoate 200 mg IM tomorrow. He has tolerated the Haldol oral without difficulties. He may be showing some early signs of response to Haldol with less delusional thinking. I had a telephone consultation with Dr. Jackson at [facility] in regard to dosing. Dr. Jackson felt very strongly that it is critical in a patient such as Mr. Washington that he get to a therapeutic blood level as soon as possible and that generally higher doses of Haldol Decanoate are well-tolerated. He notes that if he does have EPS symptoms, they are most likely to occur within the first three days of initiation, so we will have the opportunity to follow him and assess for EPS. Dr. Jackson also noted there are significant risks to patients who are on subtherapeutic for antipsychotic medications. Given the patient's psychosis as well as manic presentations plus the fact that he seems to be showing some early signs of improvement from 20 mg g daily of oral Haldol I would assess that benefits of the recommended dose of Haldol Decanoate far outweigh risks as noted. I would anticipate discharging the patient probably by middle of next week. We will focus on stabilization and discharge planning. CALLY / DAVIE: [id number] / MTDD
[2020-06-21] MEDS: VALPROIC ACID ORAL SOLN 250 MG/5 ML CUP PO SCH ×2 (09:47→21:15)
[2020-06-21] MEDS: BENZTROPINE MESYLATE 1 MG TAB PO SCH ×2 (09:47→21:15)
[2020-06-21] MEDS: NICOTINE 14MG/24HR PATCH TRANSDERM SCH (09:47)
[2020-06-21] MEDS: haloperidoL 5 MG TAB PO SCH ×2 (09:47→21:15)
[2020-06-21] MEDS ORDERED: HALOPERIDOL DECANOATE 100 MG/ML 1 ML VIAL IM ONE ×2 (10:00→14:00)
--- NOTE | 2020-06-21 10:25 | P.PN ---
Progress Note - Text Progress Note Date: 06/21/20 Interval history: Patient was seen in his bedroom and was directable and agreeable to speak with scenario writer. Patient just received his Haldol Decanoate. He is not endorsing any problems with the IM medication at this time. At this time patient denies any suicidal or homicidal ideations intent or plan. Denies any Auditory or visual hallucinations. Patient denies any side effects from the medications and has been compliant with meds. He does endorse significant paranoia. He became hyperverbal and agitated when discussing his father and how his father has been involved in illegal activities including drug smuggling. He also reports that his father and the chief deputy court clerk have been working together. He states that he is upset that he is conservative long-term hold. He is wondering if he is able to avoid long-term by staying here longer. He showed a number to this provider which she states is for an FBI agent. Mental status exam: General Appearance: Patient appears to be stated age is alert, directable, and cooperative. Behavior: Patient became agitated when discussing his father. Psychomotor activity became elevated. Patient began pacing and showed a phone number for "the FBI." Speech: Patient's speech is fluent and nonpressured. Mood/Affect: Mood is "okay." Affect is initially calm but later intense and expansive. Suicidality/Homicidality: Patient denies having any suicidal or homicidal ideation intent or plan. Perceptions: Patient denies any auditory or visual hallucinations. Though content/process: Paranoid delusions are evident. Flight of ideas. Illogical. Memory and concentration: AOX3, grossly intact for the purposes of this session Judgment and insight: Poor Assessment/Plan: Continue with current diagnosis. Patient continues to meet criteria for inpatient psychiatric admission for symptom stabilization and safety. Patient received Haldol decanoate today. We will continue his current medication regimen. Monitor for medication compliance and for any psychotropic medication side effects. Will continue to monitor ongoing response to treatment. Encouraged participation in milieu.
[2020-06-22] MEDS: BENZTROPINE MESYLATE 1 MG TAB PO SCH ×2 (09:38→20:16)
[2020-06-22] MEDS: haloperidoL 5 MG TAB PO SCH ×2 (09:38→20:16)
[2020-06-22] MEDS: VALPROIC ACID ORAL SOLN 250 MG/5 ML CUP PO SCH ×2 (09:39→20:16)
--- NOTE | 2020-06-22 10:12 | P.PN ---
Progress Note - Text Progress Note Date: 06/22/20 Interval history: Patient was seen wandering the hallways and was directable and agreeable to speak with service writer advisor. Patient reports that he is feeling well after receiving the injection yesterday. He is not reporting any significant side effects. In regards to his delusions, patient reports that they do not bother him as much today, and that he will have to keep them "more under wraps." At this time patient denies any suicidal or homicidal ideations intent or plan. Denies any Auditory or visual hallucinations. Patient denies any side effects from the medications and has been compliant with meds. Mental status exam: General Appearance: Patient appears to be stated age is alert, directable, and cooperative. Behavior: No agitated behavior. Patient is calm and directable Speech: Patient's speech is fluent and nonpressured. Mood/Affect: Mood is improving mildly, affect is congruent and constricted. Suicidality/Homicidality: Patient denies having any suicidal or homicidal ideation intent or plan. Perceptions: Patient denies any auditory or visual hallucinations. Though content/process: Mild delusional thought content but less forthcoming today. Memory and concentration: AOX3, grossly intact for the purposes of this session Judgment and insight: improving mildly Assessment/Plan: Continue with current diagnosis. Patient continues to meet criteria for inpatient psychiatric admission for symptom stabilization and safety.Patient will be maintained on current psychotropic medication regimen. Monitor for medication compliance and for any psychotropic medication side effects. Will continue to monitor ongoing response to treatment. Encouraged participation in milieu.
[2020-06-23] MEDS: VALPROIC ACID ORAL SOLN 250 MG/5 ML CUP PO SCH (08:29)
[2020-06-23] MEDS: haloperidoL 5 MG TAB PO SCH ×2 (08:29→20:07)
[2020-06-23] MEDS: BENZTROPINE MESYLATE 1 MG TAB PO SCH ×2 (08:29→20:07)
--- NOTE | 2020-06-23 11:33 | P.PN ---
Progress Note - Text Progress Note Date: 06/23/20 Interval History: Patient was seen today laying in his bed in his room and was directable and ag reeable to speak to her in the office. Patient appears to be more appropriate sba underwriter today and appears to be less delusional and less aggressive/hostile with sba underwriter during the interview. Patient continues to make some statements about him being wrongfully accused and that his case will be "thrown out" and that [facility] will [facility] to [facility]. He appears to demonstrate better impulse control today. He was more friendly with sba underwriter and spoke about his weekend. He states that he is feeling better with regard to his mood and feels less labile. He states that he is able to sleep approximately 6-7 hours last night. Patient was agreeable to have his medications changed off of the liquid and onto the pills. He claims to have improving energy during the day. At this time patient denies any suicidal or homical ideations, intent or plan. Patient denies any auditory, visual hallucinations. Patient has been taking his medications as prescribed. Mental Status Exam: General Appearance: Patient appears to be stated age is short in stature, several tattoos, alert, more directable today, attempts to be polite. Patient appears to have improving hygiene and grooming. Behavior: Patient is seated without any agitated behavior. Speech: Patient's speech rate has improved. Mood/Affect: Patient reports their mood is "better", affect is congruent, less labile. Suicidality/Homicidality: Patient denies having any homicidal ideation intent or plan. Denies any suicidal ideations intent or plan Perceptions: Patient denies any visual hallucinations and denies any auditory hallucinations Though content/process: Patient Rambles. Tangential/circumstantial, improving. No delusions today. Memory and concentration: AOX3, grossly intact for the purposes of this session Judgment and insight: Improving mildly. Assessment Psychosis unspecified Cannabis use disorder Nicotine dependence Plan: -Patient continues to meet criteria for inpatient psychiatric admission for symptom stabilization and safety. Patient has not signed medication consent and was placed in patient's chart. Patient ended up deferring court and agreeing to treatment. -Medications: Will switch to PO Depakote 500 mg QHS for mood stabilization/aggression. Continue with Haldol 10 mg twice a day for psychosis/mood stabilization. Continue Cogentin 1 mg twice a day for EPS prophylaxis. -When necessary Ativan and Geodon for agitation/aggression. -NRT - nicotine patch -SW on board for discharge planning. Encouraged the patient to participate in milieu. [facility] is [facility] and will be discharged back to [facility] once he is psychiatrically stabilized. Patient ended up deferring court and agreeing to treatment. Patient will likely be discharged tomorrow.
[2020-06-23] MEDS ORDERED: DIVALPROEX ER 500 MG TAB.ER.24H PO SCH (21:00)
--- NOTE | 2020-06-24 08:22 | P.DS ---
Providers Date of admission: 06/10/20 19:33 Expected date of discharge: 06/24/20 Attending physician: Abiodun Muir MD Consults: 06/10/20 19:42 Consult Physician Routine Consulting Provider: Mandi Physician Consult Reason/Comments: H&P and medical Do you want consulting provider notified?: Yes Primary care physician: Stated None - Discharge Diagnosis(es) (1) Unspecified psychosis Current Visit: Yes Status: Acute Priority: High (2) Cannabis abuse Current Visit: Yes Status: Acute Priority: Medium (3) Nicotine dependence Current Visit: Yes Status: Acute Priority: Low Hospital Course: Admission HPI: Admission was completed by marine underwriter "Patient is a 44-year-old male who is currently homeless coming from local [facility] single has no kids unemployed. Patient presented to the hospital transferred [facility] the [facility] on petition by [facility] staff for delusional thinking and rambling along with bizarre thoughts. Patient was evaluated in the ER and admitted to not having a specific psychiatric diagnosis and not being on any psychiatric medications. According to ER report patient stated that he was in the hospital for having a "stitch in the abdomen that is coming out". Patient was positive for THC on his UDS and a negative UA. Patient was admitted to mental health for for further evaluation and treatment. Patient was seen today and appeared to have poor hygiene and grooming however was directable and agreeable parts data writer in the office. He claims that he has been in [facility] for 7-8 days however did not elaborate why he was in [facility] and what the charges were. She had pressured speech, endorsed paranoia and was grandiose. Patient had several loosely formed delusions. He claims that the government will be "dumping money into this facility and I want him to do it". He rambles and was illogical at times. He spoke about his sister going on the news to speak about the hospital. He also claims that at the [facility] "they didn't know what to do with me I was ripping the place out". Claims that he needs anger management and does not take any medications. Patient claimed that his mood is "fine" and denies any anxiety today. He states that his sleep and appetite are fair. He denies any nightmares." Hospital course: Upon admission to the unit patient was initially loud, aggressive and hostile. Patient was initially resistant to treatment/medications however and is up signing deferral and began taking medication on the unit. Patient got along well with other patients on the unit and followed unit protocol. Patient was compliant with the medications and denied any side effects throughout hospital course. Patient was initially started on paliperidone which patient did not improve his symptoms. Patient was then switched to Haldol by mouth and titrated up to a dose of 10 mg twice a day for psychosis/mood stabilization. Patient was also started on Cogentin 1 mg twice a day for EPS prophylaxis. Patient was also started on Depakote ER 750 mg daily at bedtime for mood stabilization/aggression.. Patient spoke of his stressors and engaged in therapy both group and individual. Patient was also seen by medical team for history and physical exam. Patient received a brain CT scan on 06/11/2020 which showed no acute intracranial hemorrhage or midline shift. Throughout the course of the hospitalization patient gradually improved with regards to mood lability, aggression, sleep and became future oriented with improved insight and judgment. On the day of discharge patient denied any suicidal or homicidal ideations intent or plan denied any auditory or visual hallucinations. Patient endorsed wanting to live for future and his family. Patient denied any paranoia and did not endorse any delusions. Patient does have a significant history of substance abuse and was counseled on abstaining from all substances including alcohol and marijuana. Patient wanted to cut back marijuana use on his own at this time. Patient was also counseled on the medications and need for regular compliance and was encouraged to follow-up with their outpatient appointment for mental health and also for primary care. As patient came from [facility], patient was placed on a [facility] hold until discharge date and will be discharged to police custody. Mental status exam: General Appearance: Patient appears to be stated age is alert, directable, and cooperative. Patient is in no acute distress and has improved hygiene and grooming Behavior: Patient is calmly seated without any agitated behavior. Speech: Patient's speech is fluent and nonpressured. Mood/Affect: Patient reports their mood is "good", affect is congruent and euthymic. Suicidality/Homicidality: Patient denies having any suicidal or homicidal ideation intent or plan. Perceptions: Patient denies any auditory or visual hallucinations. Though content/process: There is no evidence of any delusional thought content and thought process is linear and goal-directed. Memory and concentration: AOX3, grossly intact for the purposes of this session. Can spell "WORLD" backwards correctly. Judgment and insight: chronically poor, however has improved with guarded prognosis Impression: Psychosis unspecified, rule out bipolar disorder albert with psychotic features Cannabis use disorder Nicotine dependence Plan: -Continue with discharge today as patient has improved and stabilized psychiatrically and is not currently an imminent threat to himself and/or others. Patient will remain at chronically elevated risk for harm to self and/or others due to his impulsivity and substance abuse. -Continue medications: Continue Depakote by mouth 750 mg daily at bedtime for m ood stabilization/aggression, Haldol 10 mg twice a day for psychosis/mood stabilization, Cogentin 1 mg twice a day for EPS prophylaxis. -Patient was counseled on the need for medication compliance and appropriate follow-up at mental health and also primary care for medical issues. Patient verbalized understanding and agreed. -Social work to arrange for patient to be discharged to police custody upon discharge from the mental health unit. Social work also to arrange for patients follow up appointments for psychiatric care along with follow up with primary care provider. -Patient counseled on abstaining from recreational drugs and marijuana and alcohol. Was informed/educated on the adverse effects on their physical and mental health. Patient verbally agreed and understood. Patient was offered substance abuse treatment however declined at this time. -Patient was instructed to return to the hospital or seek immediate medical care if their psychiatric or medical symptoms do worsen or reoccur. Allergies Allergy/AdvReac Type Severity Reaction Status Date / Time Penicillins Allergy Swelling Verified 06/10/20 14:32 Laboratory Results WBC 9.3 k/uL (3.8-10.6) 06/11/20 09:00 RBC 5.32 m/uL (4.30-5.90) 06/11/20 09:00 Hgb 15.7 gm/dL (13.0-17.5) 06/11/20 09:00 Hct 48.2 % (39.0-53.0) 06/11/20 09:00 MCV 90.6 fL (80.0-100.0) 06/11/20 09:00 MCH 29.6 pg (25.0-35.0) 06/11/20 09:00 MCHC 32.7 g/dL (31.0-37.0) 06/11/20 09:00 RDW 13.8 % (11.5-15.5) 06/11/20 09:00 Plt Count 293 k/uL (150-450) 06/11/20 09:00 Neutrophils % 67 % 06/11/20 09:00 Lymphocytes % 25 % 06/11/20 09:00 Monocytes % 4 % 06/11/20 09:00 Eosinophils % 1 % 06/11/20 09:00 Basophils % 1 % 06/11/20 09:00 Neutrophils # 6.3 k/uL (1.3-7.7) 06/11/20 09:00 Lymphocytes # 2.3 k/uL (1.0-4.8) 06/11/20 09:00 Monocytes # 0.4 k/uL (0-1.0) 06/11/20 09:00 Eosinophils # 0.1 k/uL (0-0.7) 06/11/20 09:00 Basophils # 0.1 k/uL (0-0.2) 06/11/20 09:00 Sodium 140 mmol/L (137-145) 06/11/20 09:00 Potassium 4.8 mmol/L (3.5-5.1) 06/11/20 09:00 Chloride 107 mmol/L (98-107) 06/11/20 09:00 Carbon Dioxide 23 mmol/L (22-30) 06/11/20 09:00 Anion Gap 10 mmol/L 06/11/20 09:00 BUN 18 mg/dL (9-20) 06/11/20 09:00 Creatinine 0.86 mg/dL (0.66-1.25) 06/11/20 09:00 Est GFR (CKD-EPI)AfAm >90 (>60 ml/min/1.73 sqM) 06/11/20 09:00 Est GFR (CKD-EPI)NonAf >90 (>60 ml/min/1.73 sqM) 06/11/20 09:00 Glucose 189 mg/dL (74-99) H 06/11/20 09:[address] Glu mg/dL 126 06/11/20 09:00 Hemoglobin A1c 6.0 % (4.0-6.0) 06/11/20 09:00 Calcium 9.5 mg/dL (8.4-10.2) 06/11/20 09:00 Total Bilirubin 0.4 mg/dL (0.2-1.3) 06/11/20 09:00 AST 22 U/L (17-59) 06/11/20 09:00 ALT 20 U/L (4-49) 06/11/20 09:00 Alkaline Phosphatase 65 U/L (38-126) 06/11/20 09:00 Total Protein 6.8 g/dL (6.3-8.2) 06/11/20 09:00 Albumin 4.3 g/dL (3.5-5.0) 06/11/20 09:00 Triglycerides 116 mg/dL (<150) 06/11/20 09:00 Cholesterol 176 mg/dL (<200) 06/11/20 09:00 LDL Cholesterol, Calc 90 mg/dL (0-99) 06/11/20 09:00 HDL Cholesterol 63 mg/dL (40-60) H 06/11/20 09:00 TSH 1.830 mIU/L (0.465-4.680) 06/11/20 09:00 Urine Color Yellow 06/10/20 14:36 Urine Appearance Clear (Clear) 06/10/20 14:36 Urine pH 6.0 (5.0-8.0) 06/10/20 14:[address] 1.022 (1.001-1.035) 06/10/20 14:36 Urine Protein Negative (Negative) 06/10/20 14:36 Urine Glucose (UA) Negative (Negative) 06/10/20 14:36 Urine Ketones Negative (Negative) 06/10/20 14:36 Urine Blood Negative (Negative) 06/10/20 14:36 Urine Nitrite Negative (Negative) 06/10/20 14:36 Urine Bilirubin Negative (Negative) 06/10/20 14:36 Urine Urobilinogen <2.0 mg/dL (<2.0) 06/10/20 14:36 Ur Leukocyte Esterase Negative (Negative) 06/10/20 14:36 Urine Opiates Screen Not Detected (NotDetected) 06/10/20 14:36 Ur Oxycodone Screen Not Detected (NotDetected) 06/10/20 14:36 Urine Methadone Screen Not Detected (NotDetected) 06/10/20 14:36 Ur Propoxyphene Screen Not Detected (NotDetected) 06/10/20 14:36 Ur Barbiturates Screen Not Detected (NotDetected) 06/10/20 14:36 U Tricyclic Antidepress Not Detected (NotDetected) 06/10/20 14:36 Ur Phencyclidine Scrn Not Detected (NotDetected) 06/10/20 14:36 Ur Amphetamines Screen Not Detected (NotDetected) 06/10/20 14:36 U Methamphetamines Scrn Not Detected (NotDetected) 06/10/20 14:36 U Benzodiazepines Scrn Not Detected (NotDetected) 06/10/20 14:36 Urine Cocaine Screen Not Detected (NotDetected) 06/10/20 14:36 U Marijuana (THC) Screen Detected (NotDetected) H 06/10/20 14:36 Vital Signs Temp 97.8 F 06/20/20 07:08 Pulse 67 06/20/20 07:08 Resp 16 06/20/20 07:08 BP 121/64 06/20/20 07:08 Pulse Ox 98 06/17/20 04:53 Patient Condition at Discharge: Stable Plan - Discharge Summary New Discharge Prescriptions: New Benztropine Mesylate [Cogentin] 1 mg PO BID 30 Days tab Divalproex ER [Depakote ER] 750 mg PO DAILY 30 Days tab.er.24h haloperidoL [Haldol] 10 mg PO BID 30 Days tab Acetaminophen Tab [Tylenol] 650 mg PO Q4HR PRN tab PRN Reason: Pain/Discomfort Discharge Medication List Acetaminophen Tab [Tylenol] 650 mg PO Q4HR PRN tab 06/24/20 [Rx] Benztropine Mesylate [Cogentin] 1 mg PO BID 30 Days tab 06/24/20 [Rx] Divalproex ER [Depakote ER] 750 mg PO DAILY 30 Days tab.er.24h 06/24/20 [Rx] haloperidoL [Haldol] 10 mg PO BID 30 Days tab 06/24/20 [Rx] Follow up Appointment(s)/Referral(s): None,Stated [Primary Care Provider] - 1-2 days Activity/Diet/Wound Care/Special Instructions: Activity and diet as tolerated. Avoid the use of street drugs and alcohol. Take all medications as prescribed. When you are in need of refills on your medications please contact your medical provider and/or outpatient psychiatrist to have this done. Please go to scheduled outpatient appointment for aftercare treatment. If symptoms return or become worse, call the crisis line at and/or go to the nearest emergency room for evaluation. Discharge Disposition: OTHER INSTITUTION NOT DEFINED
[2020-06-24] MEDS: BENZTROPINE MESYLATE 1 MG TAB PO SCH (11:23)
[2020-06-24] MEDS: haloperidoL 5 MG TAB PO SCH (11:23)
== END 2020-06-24 15:20 | disposition home or self-care (01) | DRG 885 ==
LOC: EC 12:52 → 3MHU 19:33
PROVIDERS: ADMIT Psychiatry & Neurology Psychiatry; ATTEND Psychiatry & Neurology Psychiatry
DX: F23 Brief psychotic disorder (principal); G25.9 Extrapyramidal and movement disorder, unspecified; F12.10 Cannabis abuse, uncomplicated; F17.210 Nicotine dependence, cigarettes, uncomplicated; F90.9 Attention-deficit hyperactivity disorder, unspecified type; J45.20 Mild intermittent asthma, uncomplicated; K21.9 Gastro-esophageal reflux disease without esophagitis; K40.20 Bilateral inguinal hernia, without obstruction or gangrene, not specified as recurrent; R45.87 Impulsiveness; Z59.0 Homelessness; Z91.83 Wandering in diseases classified elsewhere; Z88.0 Allergy status to penicillin; Z80.3 Family history of malignant neoplasm of breast; Z71.51 Drug abuse counseling and surveillance of drug abuser
CPT/HCPCS: 70450; 80053; 80061; 80306; 81003; 82075; 83036; 84443; 85025; 96372; 99285

== ENCOUNTER 2022-04-06 23:35 | Inpatient (IN) | payer MEDICAID, OTHER ==
[2022-04-07] MEDS ORDERED: ZIPRASIDONE 20 MG VIAL IM STA (00:11)
[2022-04-07] MEDS ORDERED: LORazepam 2 MG/ML INJ IM STA (00:11)
--- NOTE | 2022-04-07 00:16 | ED ---
Psych HPI - General Chief Complaint: Psychiatric Symptoms Stated Complaint: Mental Health Time Seen by Provider: 04/06/22 23:47 Source: patient, EMS Mode of arrival: EMS Limitations: altered mental status (Not fully cooperative with history of physical) - History of Present Illness Initial Comments: This patient is a 46-year-old man who is here for psychiatric evaluation. The patient is brought on by EMS after long force was called because patient was making suicidal statements. Petition's filed by the patient's sister who states that he has been having delusional thoughts going back for some time. He tonight was holding a knife up to his neck and did in fact make a very superficial laceration/abrasion to the anterior aspect of his neck. Police then reportedly had to disarm him. When I interview the patient, he is making grandiose and delusional statements. He is currently denying suicidal ideation and homicidal ideation. MD Complaint: other -: days(s) Associated Psychiatric Symptoms: suicidal ideation, racing thoughts, delusions Quality: constant Improves With: none Worsens With: none Associated Symptoms: denies other symptoms - Related Data Previous Rx's Medication Instructions Recorded Acetaminophen Tab [Tylenol] 650 mg PO Q4HR PRN tab 06/24/20 Benztropine Mesylate [Cogentin] 1 mg PO BID 30 Days tab 06/24/20 Divalproex ER [Depakote ER] 750 mg PO DAILY 30 Days tab.er.24h 06/24/20 haloperidoL [Haldol] 10 mg PO BID 30 Days tab 06/24/20 Allergies Allergy/AdvReac Type Severity Reaction Status Date / Time Penicillins Allergy Swelling Verified 04/07/22 04:52 Review of Systems ROS Statement: Those systems with pertinent positive or pertinent negative responses have been documented in the HPI. ROS Other: All systems not noted in ROS Statement are negative. 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 History of Any Multi-Drug Resistant Organisms: None Reported Past Surgical History: No Surgical Hx Reported Past Anesthesia/Blood Transfusion Reactions: No Reported Reaction Past Psychological History: ADD/ADHD Smoking Status: Former smoker Past Alcohol Use History: None Reported Past Drug Use History: None Reported - Past Family History Mother Family Medical History: Cancer Additional Family Medical History / Comment(s): BREAST General Exam Limitations: no limitations General appearance: alert, anxious Head exam: Present: atraumatic, normocephalic Eye exam: Present: PERRL, EOMI, periorbital swelling. Absent: scleral icterus, conjunctival injection, nystagmus ENT exam: Present: normal oropharynx Neck exam: Present: normal inspection, full ROM. Absent: tenderness Respiratory exam: Present: normal lung sounds bilaterally. Absent: respiratory distress, wheezes, rales, rhonchi, stridor, chest wall tenderness Cardiovascular Exam: Present: regular rate, normal rhythm, normal heart sounds. Absent: systolic murmur, diastolic murmur, rubs, gallop GI/Abdominal exam: Present: soft. Absent: distended, tenderness, guarding, rebound, rigid, mass Extremities exam: Present: normal inspection, normal capillary refill. Absent: pedal edema, calf tenderness Back exam: Present: normal inspection. Absent: CVA tenderness (R), CVA tenderness (L), vertebral tenderness Neurological exam: Present: alert, CN II-XII intact. Absent: motor sensory deficit Psychiatric exam: Present: anxious, manic. Absent: flat affect, homicidal ideation, suicidal ideation Skin exam: Present: warm, dry, normal color, abrasion (There is a small very superficial laceration/abrasion to anterior aspect of the patient's neck. It does not fully penetrate the dermis.). Absent: rash Course Vital Signs 04/06/22 04/07/22 23:43 06:40 Temperature 97.9 F 97.8 F Pulse Rate 88 Pulse Rate [ 85 Left Sitting] Respiratory 19 15 Rate Blood Pressure 122/98 Blood Pressure 134/65 [Left Arm Sitting] O2 Sat by Pulse 99 95 Oximetry Medical Decision Making - Lab Data Result diagrams: 04/07/22 02:25 04/07/22 02:25 Lab Results 04/07/22 04/07/22 04/07/22 Range/Units 02:25 02:25 02:25 WBC 13.9 H (3.8-10.6) k/uL RBC 4.27 L (4.30-5.90) m/uL Hgb 13.3 (13.0-17.5) gm/dL Hct 37.9 L (39.0-53.0) % MCV 88.9 (80.0-100.0) fL MCH 31.1 (25.0-35.0) pg MCHC 35.0 (31.0-37.0) g/dL RDW 14.0 (11.5-15.5) % Plt Count 234 (150-450) k/uL MPV 7.8 Sodium 128 L (137-145) mmol/L Potassium 3.7 (3.5-5.1) mmol/L Chloride 98 (98-107) mmol/L Carbon Dioxide 20 L (22-30) mmol/L Anion Gap 10 mmol/L BUN 22 H (9-20) mg/dL Creatinine 0.91 (0.66-1.25) mg/dL Est GFR (CKD-EPI)AfAm >90 (>60 ml/min/1.73 sqM) Est GFR (CKD-EPI)NonAf >90 (>60 ml/min/1.73 sqM) Glucose 106 H (74-99) mg/dL Calcium 8.8 (8.4-10.2) mg/dL Serum Alcohol mg/dL Coronavirus (PCR) Not Detected (Not Detectd) 04/07/22 Range/Units 03:46 WBC (3.8-10.6) k/uL RBC (4.30-5.90) m/uL Hgb (13.0-17.5) gm/dL Hct (39.0-53.0) % MCV (80.0-100.0) fL MCH (25.0-35.0) pg MCHC (31.0-37.0) g/dL RDW (11.5-15.5) % Plt Count (150-450) k/uL MPV Sodium (137-145) mmol/L Potassium (3.5-5.1) mmol/L Chloride (98-107) mmol/L Carbon Dioxide (22-30) mmol/L Anion Gap mmol/L BUN (9-20) mg/dL Creatinine (0.66-1.25) mg/dL Est GFR (CKD-EPI)AfAm (>60 ml/min/1.73 sqM) Est GFR (CKD-EPI)NonAf (>60 ml/min/1.73 sqM) Glucose (74-99) mg/dL Calcium (8.4-10.2) mg/dL Serum Alcohol <10 mg/dL Coronavirus (PCR) (Not Detectd) Disposition Clinical Impression: Acute psychosis Disposition: ADMITTED IP TO THIS HOSP Condition: Fair Is patient prescribed a controlled substance at d/c from ED?: No
[2022-04-07 03:14] LABS: HCT 37.9 % (39.0-53.0); HGB 13.3 gm/dL (13.0-17.5); MCH 31.1 pg (25.0-35.0); MCV 88.9 fL (80.0-100.0); Mean Platelet Volume 7.8; Platelet Count 234 k/uL (150-450); RBC 4.27 m/uL (4.30-5.90); WBC 13.9 k/uL (3.8-10.6)
[2022-04-07 03:26] LABS: African American GFR (CKD) >90 (>60 ml/min/1.73 sqM); Anion Gap 10 mmol/L; Blood Urea Nitrogen 22 mg/dL (9-20); Calcium 8.8 mg/dL (8.4-10.2); Carbon Dioxide 20 mmol/L (22-30); Chloride 98 mmol/L (98-107); Glucose 106 mg/dL (74-99); Non-African American GFR(CKD) >90 (>60 ml/min/1.73 sqM); Potassium 3.7 mmol/L (3.5-5.1); Sodium 128 mmol/L (137-145)
[2022-04-07] MEDS ORDERED: LORazepam 1 MG TAB PO PRN (04:48)
[2022-04-07] MEDS ORDERED: MAGNESIUM HYDROXIDE 2,400 MG/10 ML CUP PO PRN (04:48)
[2022-04-07] MEDS ORDERED: MAG HYDROX/AL HYDROX/SIMETH 30 ML CUP PO PRN (04:48)
[2022-04-07] MEDS ORDERED: HALOPERIDOL LACTATE 5 MG/ML 1 ML VIAL IM PRN (04:48)
[2022-04-07] MEDS ORDERED: LORazepam 2 MG/ML INJ IM PRN (04:51)
[2022-04-07] MEDS ORDERED: haloperidoL 5 MG TAB PO PRN (04:52)
[2022-04-07 05:35] LABS: Appearance,Urine Clear (Clear); Bacteria,Urine Rare /hpf; Bilirubin,Urine Negative (Negative); Blood,Urine Negative (Negative); Color,Urine Yellow; Glucose,Urine (UA) Negative (Negative); Hyaline Casts,Urine 20 /lpf (0-2); Ketones,Urine 2+ (Negative); Leukocyte Esterase,Urine Negative (Negative); Mucus,Urine Few /hpf; Nitrite,Urine Negative (Negative); Protein,Urine 1+ (Negative); RBC,Urine <1 /hpf (0-5); Specific Gravity,Urine 1.025 (1.001-1.035); Squamous Epithelial Cell,Urine <1 /hpf (0-4); WBC,Urine 4 /hpf (0-5)
[2022-04-07 05:42] LABS: Amphetamine Screen,Urine Not Detected (NotDetected); Barbiturate Screen,Urine Not Detected (NotDetected); Benzodiazepines Screen,Urine Detected (NotDetected); Cocaine Screen,Urine Not Detected (NotDetected); Methadone Screen, Urine Not Detected (NotDetected); Opiate Screen,Urine Not Detected (NotDetected); Oxycodone Screen, Urine Not Detected (NotDetected); Phencyclidine Screen,Urine Not Detected (NotDetected); Tricyclic Antidepressant,Urine Not Detected (NotDetected); Urn Cannabinoid Scrn Detected (NotDetected)
[2022-04-07] MEDS: NICOTINE 14MG/24HR PATCH TRANSDERM SCH (08:20)
[2022-04-07] MEDS ORDERED: traZODone HCL 50 MG TAB PO PRN (15:42)
--- NOTE | 2022-04-07 15:50 | P.HP ---
Psychiatric H&P - . H&P Date: 04/07/22 History & Physical: Allergies Allergy/AdvReac Type Severity Reaction Status Date / Time Penicillins Allergy Swelling Verified 04/07/22 04:52 Vital Signs Temp 97.8 F 04/07/22 06:40 Pulse 85 04/07/22 06:40 Resp 15 04/07/22 06:40 BP 134/65 04/07/22 06:40 Pulse Ox 95 04/07/22 06:40 FiO2 Intake & Output 04/06/22 04/07/22 04/07/22 18:59 06:59 18:59 Weight 63.503 kg 60.101 kg Laboratory Last Values WBC 13.9 k/uL (3.8-10.6) H 04/07/22 02:25 RBC 4.27 m/uL (4.30-5.90) L 04/07/22 02:25 Hgb 13.3 gm/dL (13.0-17.5) 04/07/22 02:25 Hct 37.9 % (39.0-53.0) L 04/07/22 02:25 MCV 88.9 fL (80.0-100.0) 04/07/22 02:25 MCH 31.1 pg (25.0-35.0) 04/07/22 02:25 MCHC 35.0 g/dL (31.0-37.0) 04/07/22 02:25 RDW 14.0 % (11.5-15.5) 04/07/22 02:25 Plt Count 234 k/uL (150-450) 04/07/22 02:25 MPV 7.8 04/07/22 02:25 Sodium 128 mmol/L (137-145) L 04/07/22 02:25 Potassium 3.7 mmol/L (3.5-5.1) 04/07/22 02:25 Chloride 98 mmol/L (98-107) 04/07/22 02:25 Carbon Dioxide 20 mmol/L (22-30) L 04/07/22 02:25 Anion Gap 10 mmol/L 04/07/22 02:25 BUN 22 mg/dL (9-20) H 04/07/22 02:25 Creatinine 0.91 mg/dL (0.66-1.25) 04/07/22 02:25 Est GFR (CKD-EPI)AfAm >90 (>60 ml/min/1.73 sqM) 04/07/22 02:25 Est GFR (CKD-EPI)NonAf >90 (>60 ml/min/1.73 sqM) 04/07/22 02:25 Glucose 106 mg/dL (74-99) H 04/07/22 02:25 Calcium 8.8 mg/dL (8.4-10.2) 04/07/22 02:25 Urine Color Yellow 04/07/22 05:10 Urine Appearance Clear (Clear) 04/07/22 05:10 Urine pH 6.0 (5.0-8.0) 04/07/22 05:10 Ur Specific [place] 1.025 (1.001-1.035) 04/07/22 05:10 Urine Protein 1+ (Negative) H 04/07/22 05:10 Urine Glucose (UA) Negative (Negative) 04/07/22 05:10 Urine Ketones 2+ (Negative) H 04/07/22 05:10 Urine Blood Negative (Negative) 04/07/22 05:10 Urine Nitrite Negative (Negative) 04/07/22 05:10 Urine Bilirubin Negative (Negative) 04/07/22 05:10 Urine Urobilinogen 2.0 mg/dL (<2.0) 04/07/22 05:10 Ur Leukocyte Esterase Negative (Negative) 04/07/22 05:10 Urine RBC <1 /hpf (0-5) 04/07/22 05:10 Urine WBC 4 /hpf (0-5) 04/07/22 05:10 Ur Squamous Epith Cells <1 /hpf (0-4) 04/07/22 05:10 Urine Bacteria Rare /hpf (None) H 04/07/22 05:10 Hyaline Casts 20 /lpf (0-2) H 04/07/22 05:10 Urine Mucus Few /hpf (None) H 04/07/22 05:10 Urine Opiates Screen Not Detected (NotDetected) 04/07/22 05:15 Ur Oxycodone Screen Not Detected (NotDetected) 04/07/22 05:15 Urine Methadone Screen Not Detected (NotDetected) 04/07/22 05:15 Ur Propoxyphene Screen Not Detected (NotDetected) 04/07/22 05:15 Ur Barbiturates Screen Not Detected (NotDetected) 04/07/22 05:15 U Tricyclic Antidepress Not Detected (NotDetected) 04/07/22 05:15 Ur Phencyclidine Scrn Not Detected (NotDetected) 04/07/22 05:15 Ur Amphetamines Screen Not Detected (NotDetected) 04/07/22 05:15 U Methamphetamines Scrn Not Detected (NotDetected) 04/07/22 05:15 U Benzodiazepines Scrn Detected (NotDetected) H 04/07/22 05:15 Urine Cocaine Screen Not Detected (NotDetected) 04/07/22 05:15 U Marijuana (THC) Screen Detected (NotDetected) H 04/07/22 05:15 Serum Alcohol <10 mg/dL 04/07/22 03:46 Coronavirus (PCR) Not Detected (Not Detectd) 04/07/22 02:25 04/07/22 15:43 IDENTIFYING DATA: Patient is a 46-year-old male who currently lives with his aunt in a house, is single. HPI: Patient presented to the hospital yesterday via EMS. Apparently police were called due to threats of suicide by family members. Patient apparently was holding a knife to his neck according to ER report and was also endorsing delusional content and was grandiose in the ER. Petition was filled out by patient's sister claiming that patient did hold a knife to his neck and has been making delusional statements. Patient was given Geodon and Ativan in the ER for agitation and admitted involuntarily. Patient claims that "I was riding a bicycle" and states that he was talking about who his father was in people got scared of him. He states that his father is Demetri Emanuel and when asked how he knows that she states that "I just know it". He states that his mother is the King of [place]. He claims that he went to his sister's place and had a knife on the bed and states that when he laid down the knife "popped up" and landed on his neck" and he states that he did not hold it to his neck. He claims that the assistant center manager were called and came to take him into the hospital. He states that "they probably just wanted me off the street". He states that he recently lost his car and also his job. He claims that he does not need psychiatric medications and stopped taking them at home. He has poor reality testing and poor judgment and insight. He states that his sleep is fair appetite is fair. Patient denies any suicidal or homicidal ideations intent or plan. At this time patient denies any auditory or visual hallucinations. Patient denies any flight of ideas racing thoughts and increased in goal directed behavior. Patient admits to using cigarettes and also marijuana daily. PAST PSYCHIATRIC HISTORY: Patient states that he has no psychiatric history however has been admitted in the past to the psychiatric unit and diagnosed with psychosis and cannabis use disorder and was previously on haloperidol, Depakote and Cogentin. Patient denies any psychiatric outpatient follow-up. Patient denies any history of suicide attempts in the past. PMH: As per medicine H&P ALLERGIES: as per EMR CHEMICAL DEPENDENCY HISTORY: as per HPI FAMILY PSYCHIATRIC/SUBSTANCE USE HISTORY: denies SOCIAL HISTORY: Patient was born and raised in [facility]. He completed high school and obtained his GED. 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 He states that he lost his job about a week ago. He claims that he did serve time in detention for breaking and entering and other nonspecific charges. He claims that he does not have any kids he is currently single. He states that he lives at his aunt's house. MENTAL STATUS EXAM: General Appearance: Patient appears to be short statured, disheveled in appearance, stated age is alert, directable. Patient appears to have poor hygiene and grooming. Behavior: Patient is seated without any agitated behavior. Somewhat intrusive Speech: Patient's speech is fluent and nonpressured. [place] Mood/Affect: Patient reports their mood is "okay", affect is congruent and constricted. Suicidality/Homicidality: Patient denies having any homicidal ideation intent or plan. Denies any suicidal ideations intent or plan Perceptions: Patient denies any visual hallucinations and denies any auditory hallucinations Though content/process: Patient is delusional, intrusive and impulsive. Flight of ideas and grandiose. Bizarre statements and content. Memory and concentration: AOX3, grossly intact for the purposes of this session. Can spell "WORLD" backwards Judgment and insight: poor STRENGTHS/WEAKNESSES: strength is that patient is resilient. Weakness is that patient has poor judgment and is impulsive INTELLECT: average IMPRESSIONS: Schizophrenia Cannabis use disorder Nicotine dependence PLAN: -Patient is admitted under involuntary status to MHU for stabilization of p sychiatric symptoms and safety. Patient has not signed adult voluntary form and medication consent and is placed in patient's chart. A second certification was completed and along with petition will be filed for court. -Medications : Will start patient on paliperidone by mouth milligrams daily at bedtime for psychosis/mood stabilization. Trazodone 50 mg daily at bedtime when necessary for sleep. -Ativan and Haldol PRN for agitation/aggression -Patient was informed of the risks, benefits and side effects of the medication and patient verbally consented to taking the medications. Patient signed med consent form and was placed in chart. -Internal Medicine consult to perform medical evaluation and physical. -NRT - nicotine patch -SW on board for discharge planning. Encourage patient to participate in groups to work on coping skills. Will await deferral and court date. 04/07/22 15:46 04/07/22 15:46
[2022-04-07] MEDS ORDERED: PALIPERIDONE 3 MG TAB.ER.24 PO SCH (21:00)
[2022-04-08] MEDS: NICOTINE 14MG/24HR PATCH TRANSDERM SCH (08:38)
--- NOTE | 2022-04-08 09:54 | P.PN ---
Progress Note - Text Progress Note Date: 04/08/22 Interval History: Patient was seen lying in his bed this morning and was directable and agreeable to speak with gag writer in the office. Patient appeared to have a brighter affect today and was more engaged with gag writer. He continues to state that his father is a little Emanuel and he told gag writer to "keep it a secret". He also continues to state that his mom is the [place] and he is the presence of [place]. He continues to be delusional and bizarre at times however improved in terms of his rambling and associations. He states that his mood and anxiety of an improving and he states that he was able to shower yesterday and plan to shower today. He claims that he does not have clean clothes. He states that he is able to sleep fairly well last night and took the medications as well. Continues to have superficial/poor insight and judgment. At this time patient denies any suicidal or homical ideations, intent or plan. Patient denies any auditory, visual hallucinations. Patient denies any side effects from the medications and has been compliant with meds. Mental Status Exam: General Appearance: Patient appears to be short statured, disheveled in appearance, stated age is alert, directable. Patient appears to have poor hygiene and grooming. Multiple tattoos Behavior: Patient is seated without any agitated behavior. Less intrusive today. More cooperative. Speech: Patient's speech is fluent and nonpressured. [place] Mood/Affect: Patient reports their mood is "ok", affect is congruent Suicidality/Homicidality: Patient denies having any homicidal ideation intent or plan. Denies any suicidal ideations intent or plan Perceptions: Patient denies any visual hallucinations and denies any auditory hallucinations Though content/process: Patient is delusional, and less impulsive/intrusive today. grandiose. Bizarre statements and content. Memory and concentration: AOX3, grossly intact for the purposes of this session. Judgment and insight: poor, improving markedly IMPRESSIONS: Schizophrenia Cannabis use disorder Nicotine dependence Plan: -Patient continues to meet criteria for inpatient psychiatric admission for symptom stabilization and safety. Patient has not signed adult voluntary form and medication consent and was placed in patient's chart. -Medications: increase paliperidone by mouth 6 mg daily at bedtime for psychosis/mood stabilization. Trazodone 50 mg daily at bedtime when necessary for sleep -When necessary Ativan and Haldol for agitation/aggression. -NRT - nicotine patch -SW on board for discharge planning. Encouraged the patient to participate in milieu. Currently awaiting deferral with insurance attorney and court date.
[2022-04-08 14:39] LABS: Basophils % (A) 0 %; Eosinophils % (A) 0 %; HCT 40.3 % (39.0-53.0); HGB 13.4 gm/dL (13.0-17.5); Lymphocytes # (A) 1.6 k/uL (1.0-4.8); Lymphocytes % (A) 18 %; MCH 29.6 pg (25.0-35.0); MCHC 33.3 g/dL (31.0-37.0); MCV 88.9 fL (80.0-100.0); Mean Platelet Volume 7.8; Monocytes # (A) 0.6 k/uL (0-1.0); Monocytes % (A) 7 %; Neutrophils # (A) 6.2 k/uL (1.3-7.7); Neutrophils % (A) 73 %; Platelet Count 277 k/uL (150-450); RBC 4.53 m/uL (4.30-5.90); RDW 13.7 % (11.5-15.5); WBC 8.5 k/uL (3.8-10.6)
[2022-04-08 15:03] LABS: ALT 64 U/L (4-49); AST 46 U/L (17-59); African American GFR (CKD) >90 (>60 ml/min/1.73 sqM); Albumin 3.8 g/dL (3.5-5.0); Alkaline Phosphatase 63 U/L (38-126); Anion Gap 5 mmol/L; Blood Urea Nitrogen 16 mg/dL (9-20); Carbon Dioxide 29 mmol/L (22-30); Chloride 100 mmol/L (98-107); Glucose 102 mg/dL (74-99); Non-African American GFR(CKD) >90 (>60 ml/min/1.73 sqM); Potassium 4.4 mmol/L (3.5-5.1); Sodium 134 mmol/L (137-145); Total Bilirubin 0.4 mg/dL (0.2-1.3); Total Protein 6.2 g/dL (6.3-8.2)
[2022-04-08] MEDS ORDERED: PALIPERIDONE 6 MG TAB.ER.24 PO SCH (21:00)
[2022-04-08 22:52] LABS: Chol/HDL Ratio 4.06 Ratio; LDL Cholesterol,Calculated 106.2 mg/dL (0.0-131.0)
[2022-04-09] MEDS: NICOTINE 14MG/24HR PATCH TRANSDERM SCH (08:58)
[2022-04-09] MEDS: ACETAMINOPHEN TAB 325 MG TAB PO PRN (10:17)
--- NOTE | 2022-04-09 10:28 | P.PN ---
Progress Note - Text Progress Note Date: 04/09/22 Interval History: Patient was seen lying in his bed this morning and was directable and agreeable to speak with keno writer/runner in the office. Patient claims that he is doing better today however continues to speak about several delusions. He states that "Graciela Rodriguez" is a ems helicopter pilot in [place] who "knows everybody" and has been manipulating people and is out to get him. He also states that she knows the former Pres. and other politicians and fusion analyst. She continues to believe that his father is probable [place]. He continues to be delusional and bizarre at times however improved in terms of his rambling and associations. He states that his mood and anxiety of an improving. He claims that he still does not know why he is in the hospital and continues to have poor insight and judgment. He states that he is able to sleep fairly well last night and took the medications as well. At this time patient denies any suicidal or homical ideations, intent or plan. Patient denies any auditory, visual hallucinations. Patient denies any side effects from the medications and has been compliant with meds. Mental Status Exam: General Appearance: Patient appears to be short statured, disheveled in appearance, stated age is alert, directable. Patient appears to have poor hygiene and grooming. Multiple tattoos Behavior: Patient is seated without any agitated behavior. Less intrusive today. More cooperative. Speech: Patient's speech is fluent and nonpressured. [place] Mood/Affect: Patient reports their mood is "ok", affect is congruent Suicidality/Homicidality: Patient denies having any homicidal ideation intent or plan. Denies any suicidal ideations intent or plan Perceptions: Patient denies any visual hallucinations and denies any auditory hallucinations Though content/process: Patient is delusional, and less impulsive/intrusive today. grandiose. Bizarre statements and content. Memory and concentration: AOX3, grossly intact for the purposes of this session. Judgment and insight: poor, improving markedly IMPRESSIONS: Schizophrenia Cannabis use disorder Nicotine dependence Plan: -Patient continues to meet criteria for inpatient psychiatric admission for symptom stabilization and safety. Patient has not signed adult voluntary form and medication consent and was placed in patient's chart. -Medications: increase paliperidone by mouth 9 mg daily at bedtime for psychosis/mood stabilization. Trazodone 50 mg daily at bedtime when necessary for sleep -When necessary Ativan and Haldol for agitation/aggression. -NRT - nicotine patch -SW on board for discharge planning. Encouraged the patient to participate in milieu. Currently awaiting deferral with bilingual secretary and court date.
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
[2022-04-09] MEDS: PALIPERIDONE 3 MG TAB.ER.24 PO SCH (20:55)
[2022-04-10] MEDS: NICOTINE 14MG/24HR PATCH TRANSDERM SCH (08:42)
[2022-04-10] MEDS: ACETAMINOPHEN TAB 325 MG TAB PO PRN ×2 (08:43→20:39)
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
[2022-04-10] MEDS: PALIPERIDONE 3 MG TAB.ER.24 PO SCH (20:40)
[2022-04-11] MEDS: NICOTINE 14MG/24HR PATCH TRANSDERM SCH (09:31)
--- NOTE | 2022-04-11 12:04 | P.PN ---
Subjective Progress Note Date: 04/11/22 Principal diagnosis: Schizophrenia Subjective: The patient says he been doing a lot of thinking about post discharge he is going to stay with his aunt he is going continue stay off of cigarettes he has a part-time job with a person named [employer] and he can get to the job and back on his bicycle or [employer] might pick him up. He is going to get his medication as a shot that where he doesn't have to remember and other people don't have to worry about whether he is taken. He is tolerating the medication well no restlessness no constipation dizziness dry mouth or blurred vision or muscle cramps Objective: Good eye contact almost overly positive he wants to do well and make others proud of him. No evidence of psychosis a little bit of pressure to his speech no akathisia Assessment still going a little fast but doing a lot better and has real good attitude about post discharge plans Plan no change in medication Objective - Vital Signs Vital signs: Vital Signs Temp 98.2 F 04/11/22 06:51 Pulse 67 04/11/22 06:51 Resp 16 04/11/22 06:51 BP 108/62 04/11/22 06:51 Pulse Ox 99 04/09/22 10:18 FiO2 Intake & Output 04/10/22 04/11/22 04/11/22 18:59 06:59 18:59 Weight 61.7 kg - Labs CBC & Chem 7: 04/08/22 14:24 04/08/22 14:24
[2022-04-11] MEDS: ACETAMINOPHEN TAB 325 MG TAB PO PRN (20:35)
[2022-04-11] MEDS: PALIPERIDONE 3 MG TAB.ER.24 PO SCH (20:36)
[2022-04-12] MEDS: NICOTINE 14MG/24HR PATCH TRANSDERM SCH (08:44)
[2022-04-12] MEDS ORDERED: PALIPERIDONE IM 234 MG/1.5 ML SYG IM STA (10:29)
--- NOTE | 2022-04-12 10:36 | P.PN ---
Progress Note - Text Progress Note Date: 04/12/22 Interval History: Patient was seen lying in his bed this morning and was directable and agreeable to speak with comic book writer in the office. Patient appeared to have a brighter affect today. He was more conversational and comic book writer today and thanked him several times for helping him. He states that he has been going to some groups and participating. He states that he is trying to use "the skills that I learned in my toolbox". He states that his mood and anxiety of an improving. He claims that he would like to be transitioned onto the long-acting injection and is agreeable to take it today. He states that he is able to sleep fairly at nighttime. He claims that he spoke with his service sprinkler helper and signed the deferral. He states that "I know why they took me into the hospital" and explained that he was "scaring people". He appears to be more organized in his thought process today, not responding to internal stimuli. Less focused on delusions. Improving insight and judgment. He states that he is able to sleep fairly well last night. At this time patient denies any suicidal or homical ideations, intent or plan. Patient denies any auditory, visual hallucinations. Patient denies any side effects from the medications and has been compliant with meds. Mental Status Exam: General Appearance: Patient appears to be short statured, disheveled in appearance, stated age is alert, directable. Patient appears to have improving hygiene and grooming. Multiple tattoos Behavior: Patient is seated without any agitated behavior. Less intrusive today. More cooperative. Speech: Patient's speech is fluent and nonpressured. [place] Mood/Affect: Patient reports their mood is "good", affect is congruent Suicidality/Homicidality: Patient denies having any homicidal ideation intent or plan. Denies any suicidal ideations intent or plan Perceptions: Patient denies any visual hallucinations and denies any auditory hallucinations Though content/process: Less focused on delusions today. More oriented. Memory and concentration: AOX3, grossly intact for the purposes of this session. Judgment and insight: poor, improving markedly IMPRESSIONS: Schizophrenia Cannabis use disorder Nicotine dependence Plan: -Patient continues to meet criteria for inpatient psychiatric admission for symptom stabilization and safety. Patient has not signed adult voluntary form and medication consent and was placed in patient's chart. -Medications: paliperidone by mouth 9 mg daily at bedtime for psychosis/mood stabilization. We'll give loading dose of Invega Sustenna 234 mg IM today. We'll be due for next dose of 156 mg IM on 04/19 in maintenance dose of 156 mg IM On 05/10. Trazodone 50 mg daily at bedtime when necessary for sleep -When necessary Ativan and Haldol for agitation/aggression. -NRT - nicotine patch -SW on board for discharge planning. Encouraged the patient to participate in milieu. Patient deferred with his assistant attorney general. He will be transitioned onto [facility] to ensure complaince. Likely discharge in 1-2 days back with his aunt and [facility] follow up.
[2022-04-12] MEDS: ACETAMINOPHEN TAB 325 MG TAB PO PRN (20:51)
[2022-04-12] MEDS: PALIPERIDONE 3 MG TAB.ER.24 PO SCH (20:51)
[2022-04-13] MEDS: NICOTINE 14MG/24HR PATCH TRANSDERM SCH (08:55)
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
[2022-04-13] MEDS: ACETAMINOPHEN TAB 325 MG TAB PO PRN (20:29)
[2022-04-13] MEDS ORDERED: PALIPERIDONE 6 MG TAB.ER.24 PO SCH (21:00)
--- NOTE | 2022-04-14 09:59 | P.PN ---
Progress Note - Text Progress Note Date: 04/14/22 Interval History: Patient was seen in part in group this morning and was directable and agreeable to speak with proposal lead writer in the office. He claims the the shot has been helping him clear his thoughts more and he is more organized in his thought process. Patient appeared to have a brighter affect today. He states that he is feeling more positive today. He agreeable to take the next dose of Invega on tuesday. He claims that his thoughts are more clear and is able to participate more in group. He is denying any depression or anxiety today. He states that he slept fairly last night. Fair appetite. mildly Improving insight and judgment. At this time patient denies any suicidal or homicidal ideations, intent or plan. Patient denies any auditory, visual hallucinations. Patient denies any side effects from the medications and has been compliant with meds. Mental Status Exam: General Appearance: Patient appears to be short statured, disheveled in appearance, stated age is alert, directable. Patient appears to have improving hygiene and grooming. Multiple tattoos Behavior: Patient is seated without any agitated behavior. More cooperative. Speech: Patient's speech is fluent and nonpressured. Rambles. Mood/Affect: Patient reports their mood is "ok", affect is congruent, improving Suicidality/Homicidality: Patient denies having any homicidal ideation intent or plan. Denies any suicidal ideations intent or plan Perceptions: Patient denies any visual hallucinations and denies any auditory hallucinations Though content/process: Less focused on delusions today. Rambles at times. Tangential, improving mildly. Memory and concentration: AOX3, grossly intact for the purposes of this session. Judgment and insight: Chronically poor, improving mildly IMPRESSIONS: Schizophrenia Cannabis use disorder Nicotine dependence Plan: -Patient continues to meet criteria for inpatient psychiatric admission for symptom stabilization and safety. Patient has not signed adult voluntary form and medication consent and was placed in patient's chart. -Medications: decrease paliperidone by mouth 3 mg daily at bedtime for psychosis/mood stabilization. gave Invega Sustenna 234 mg IM on 04/12 next dose of 156 mg IM on tuesday and maintenance dose of 156 mg IM On 05/10. Trazodone 50 mg daily at bedtime when necessary for sleep -When necessary Ativan and Haldol for agitation/aggression. -NRT - nicotine patch -SW on board for discharge planning. Encouraged the patient to participate in milieu. Patient deferred with his criminal defense attorney. He will be transitioned onto [facility] to ensure complaince. Likely discharge with [facility] follow up after patient receives his second dose of [place] on tuesday.
[2022-04-14] MEDS: NICOTINE 14MG/24HR PATCH TRANSDERM SCH (10:02)
[2022-04-14] MEDS: PALIPERIDONE 3 MG TAB.ER.24 PO SCH (19:54)
[2022-04-14] MEDS: ACETAMINOPHEN TAB 325 MG TAB PO PRN (19:54)
[2022-04-15 07:07] VITALS: RESP 18
[2022-04-15] MEDS: NICOTINE 14MG/24HR PATCH TRANSDERM SCH (08:42)
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
[2022-04-15] MEDS: ACETAMINOPHEN TAB 325 MG TAB PO PRN (18:43)
[2022-04-15] MEDS: PALIPERIDONE 3 MG TAB.ER.24 PO SCH (20:15)
[2022-04-16 06:51] VITALS: BP 113/67; PULSE 87; TEMP 97.9
[2022-04-16] MEDS: ACETAMINOPHEN TAB 325 MG TAB PO PRN (08:54)
[2022-04-16] MEDS ORDERED: PALIPERIDONE IM 156 MG/ML SYG IM ONE (09:00)
--- NOTE | 2022-04-16 10:40 | P.DS ---
Providers Date of admission: 04/07/22 04:30 Expected date of discharge: 04/16/22 Attending physician: Abiodun Muir MD Consults: 04/07/22 04:48 Consult Physician Routine Consulting Provider: Mandi Nolasco Consult Reason/Comments: For H & P for Medical Follow Up Do you want consulting provider notified?: Yes Primary care physician: Stated None - Discharge Diagnosis(es) (1) Schizophrenia Current Visit: Yes Status: Acute Priority: High (2) Cannabis use disorder Current Visit: Yes Status: Acute Priority: Medium (3) Nicotine dependence Current Visit: Yes Status: Acute Priority: Low Hospital Course: Admission HPI: Admission note was completed by promotion writer "Patient is a 46-year-old male who currently lives with his aunt in a house, is single. Patient presented to the hospital yesterday via EMS. Apparently police were called due to threats of suicide by family members. Patient apparently was holding a knife to his neck according to ER report and was also endorsing delusional content and was grandiose in the ER. Petition was filled out by patient's sister claiming that patient did hold a knife to his neck and has been making delusional statements. Patient was given Geodon and Ativan in the ER for agitation and admitted involuntarily. Patient claims that "I was riding a bicycle" and states that he was talking about who his father was in people got scared of him. He states that his father is Demetri Emanuel and when asked how he knows that she states that "I just know it". He states that his mother is the [facility]. He claims that he went to his sister's place and had a knife on the bed and states that when he laid down the knife "popped up" and landed on his neck" and he states that he did not hold it to his neck. He claims that the personnel quality assurance auditor were called and came to take him into the hospital. He states that "they probably just wanted me off the street". He states that he recently lost his car and also his job. He claims that he does not need psychiatric medications and stopped taking them at home. He has poor reality testing and poor judgment and insight. He states that his sleep is fair appetite is fair. Patient denies any suicidal or homicidal ideations intent or plan. At this time patient denies any auditory or visual hallucinations. Patient denies any flight of ideas racing thoughts and increased in goal directed behavior. Patient admits to using cigarettes and also marijuana daily." Hospital course: Upon admission to the unit patient was admitted involuntarily on a petition and certificate and a second certificate was completed and faxed with the courts. Patient ended up signing a deferral with the public events facilities rental manager and agreeing to treatment. Patient got along well with other patients on the unit and followed unit protocol. Patient was compliant with the medications and denied any side effects throughout hospital course. Patient was started on paliperidone and increased her dose of 9 mg by mouth daily at bedtime. Patient was transitioned onto Invega Sustenna given a loading dose of 20 and 34 mg IM on 04/12 and second dose was given on day of discharge 04/16. Patient will be due for his monthly dose of Invega Sustenna 156 mg IM on 05/07 and monthly thereafter. Trazodone was started at 50 mg qhs prn for sleep. Patient spoke of his stressors and engaged in therapy both group and individual. Patient was also seen by medical team for history and physical exam. Throughout the course of the hospitalization patient gradually improved with regards to mood, anxiety, psychosis/delusions, sleep and returned back to their baseline level of functioning. On the day of discharge patient denied any suicidal or homicidal ideations intent or plan denied any auditory or visual hallucinations. Patient endorsed wanting to live for his future and to continue on with his mental health follow-up. The patient denied any access to guns or weapons. Patient denied any paranoia and did not endorse any delusions. Patient does have a significant history of substance abuse and was counseled on abstaining from all substances including alcohol and marijuana. Patient elected to do outpatient substance use treatment program through [facility]. Patient was also counseled on the medications and need for regular compliance and was encouraged to follow-up with their outpatient appointment for mental health and also for primary care. Prior to discharge a family meeting will be arranged by manager social to answer any questions and ensure safety upon discharge. Mental status exam: General Appearance: Patient appears to be short in stature, stated age is alert, pleasant, and cooperative. Patient is in no acute distress and has improved hygiene and grooming Behavior: Patient is calmly seated without any agitated behavior. Speech: Patient's speech is fluent and nonpressured. Mood/Affect: Patient reports their mood is "better", affect is congruent and euthymic. Suicidality/Homicidality: Patient denies having any suicidal or homicidal ideation intent or plan. Perceptions: Patient denies any auditory or visual hallucinations. Though content/process: There is no evidence of any delusional thought content and thought process is linear and goal-directed. more future oriented Memory and concentration: AOX3, grossly intact for the purposes of this session. Can spell "WORLD" backwards correctly. Judgment and insight: chronically poor, however has improved with guarded prognosis Impression: Schizophrenia Cannabis use disorder Nicotine dependence Plan: -Continue with discharge today as patient has improved and stabilized psychiatrically and is not currently an imminent threat to himself and/or o thers. Patient will remain at chronically elevated risk for harm to self and/or others due to his chronicmental illness and substance abuse. -Continue medications: [Titrated off of PO paliperidone as patient was transitioned onto Invega Sustenna given a loading dose of 234 mg IM on 04/12 and second dose was given on day of discharge 04/16. Patient will be due for his monthly dose of Invega Sustenna 156 mg IM on 05/07 and monthly thereafter. trazodone 50 mg prn for insomnia/mood. -Patient was counseled on the need for medication compliance and appropriate follow-up at mental health and also primary care for medical issues. Patient verbalized understanding and agreed. -Social work to arrange for and conduct family meeting to ensure safety upon discharge and answer any questions/concerns. Social work also to arrange for patients follow up appointments with [facility] for psychiatric care along with follow up with primary care provider. -Patient counseled on abstaining from recreational drugs and marijuana and alcohol. Was informed/educated on the adverse effects on their physical and mental health. Patient verbally agreed and understood. -Patient was instructed to return to the hospital or seek immediate medical care if their psychiatric or medical symptoms do worsen or reoccur. Allergies Allergy/AdvReac Type Severity Reaction Status Date / Time Penicillins Allergy Swelling Verified 04/07/22 04:52 Laboratory Results WBC 8.5 k/uL (3.8-10.6) 04/08/22 14:24 RBC 4.53 m/uL (4.30-5.90) 04/08/22 14:24 Hgb 13.4 gm/dL (13.0-17.5) 04/08/22 14:24 Hct 40.3 % (39.0-53.0) 04/08/22 14:24 MCV 88.9 fL (80.0-100.0) 04/08/22 14:24 MCH 29.6 pg (25.0-35.0) 04/08/22 14:24 MCHC 33.3 g/dL (31.0-37.0) 04/08/22 14:24 RDW 13.7 % (11.5-15.5) 04/08/22 14:24 Plt Count 277 k/uL (150-450) 04/08/22 14:24 MPV 7.8 04/08/22 14:24 Neutrophils % 73 % 04/08/22 14:24 Lymphocytes % 18 % 04/08/22 14:24 Monocytes % 7 % 04/08/22 14:24 Eosinophils % 0 % 04/08/22 14:24 Basophils % 0 % 04/08/22 14:24 Neutrophils # 6.2 k/uL (1.3-7.7) 04/08/22 14:24 Lymphocytes # 1.6 k/uL (1.0-4.8) 04/08/22 14:24 Monocytes # 0.6 k/uL (0-1.0) 04/08/22 14:24 Eosinophils # 0.0 k/uL (0-0.7) 04/08/22 14:24 Basophils # 0.0 k/uL (0-0.2) 04/08/22 14:24 Sodium 134 mmol/L (137-145) L 04/08/22 14:24 Potassium 4.4 mmol/L (3.5-5.1) 04/08/22 14:24 Chloride 100 mmol/L (98-107) 04/08/22 14:24 Carbon Dioxide 29 mmol/L (22-30) 04/08/22 14:24 Anion Gap 5 mmol/L 04/08/22 14:24 BUN 16 mg/dL (9-20) 04/08/22 14:24 Creatinine 0.91 mg/dL (0.66-1.25) 04/08/22 14:24 Est GFR (CKD-EPI)AfAm >90 (>60 ml/min/1.73 sqM) 04/08/22 14:24 Est GFR (CKD-EPI)NonAf >90 (>60 ml/min/1.73 sqM) 04/08/22 14:24 Glucose 102 mg/dL (74-99) H 04/08/22 14:[address] Glu mg/dL 115 04/08/22 14:24 Hemoglobin A1c 5.6 % (0.0-6.0) 04/08/22 14:24 Calcium 9.0 mg/dL (8.4-10.2) 04/08/22 14:24 Total Bilirubin 0.4 mg/dL (0.2-1.3) 04/08/22 14:24 AST 46 U/L (17-59) 04/08/22 14:24 ALT 64 U/L (4-49) H 04/08/22 14:24 Alkaline Phosphatase 63 U/L (38-126) 04/08/22 14:24 Total Protein 6.2 g/dL (6.3-8.2) L 04/08/22 14:24 Albumin 3.8 g/dL (3.5-5.0) 04/08/22 14:24 Triglycerides 117.00 mg/dL (0.00-149.00) 04/08/22 14:24 Cholesterol 172.00 mg/dL (0.00-200.00) 04/08/22 14:24 LDL Cholesterol, Calc 106.2 mg/dL (0.0-131.0) 04/08/22 14:24 VLDL Cholesterol, Calc 23.40 mg/dL (5.00-40.00) 04/08/22 14:24 HDL Cholesterol 42.40 mg/dL (40.00-60.00) 04/08/22 14:24 Cholesterol/HDL Ratio 4.06 Ratio 04/08/22 14:24 TSH 2.350 mIU/L (0.465-4.680) 04/08/22 14:24 Urine Color Yellow 04/07/22 05:10 Urine Appearance Clear (Clear) 04/07/22 05:10 Urine pH 6.0 (5.0-8.0) 04/07/22 05:10 Ur Specific [place] 1.025 (1.001-1.035) 04/07/22 05:10 Urine Protein 1+ (Negative) H 04/07/22 05:10 Urine Glucose (UA) Negative (Negative) 04/07/22 05:10 Urine Ketones 2+ (Negative) H 04/07/22 05:10 Urine Blood Negative (Negative) 04/07/22 05:10 Urine Nitrite Negative (Negative) 04/07/22 05:10 Urine Bilirubin Negative (Negative) 04/07/22 05:10 Urine Urobilinogen 2.0 mg/dL (<2.0) 04/07/22 05:10 Ur Leukocyte Esterase Negative (Negative) 04/07/22 05:10 Urine RBC <1 /hpf (0-5) 04/07/22 05:10 Urine WBC 4 /hpf (0-5) 04/07/22 05:10 Ur Squamous Epith Cells <1 /hpf (0-4) 04/07/22 05:10 Urine Bacteria Rare /hpf (None) H 04/07/22 05:10 Hyaline Casts 20 /lpf (0-2) H 04/07/22 05:10 Urine Mucus Few /hpf (None) H 04/07/22 05:10 Urine Opiates Screen Not Detected (NotDetected) 04/07/22 05:15 Ur Oxycodone Screen Not Detected (NotDetected) 04/07/22 05:15 Urine Methadone Screen Not Detected (NotDetected) 04/07/22 05:15 Ur Propoxyphene Screen Not Detected (NotDetected) 04/07/22 05:15 Ur Barbiturates Screen Not Detected (NotDetected) 04/07/22 05:15 U Tricyclic Antidepress Not Detected (NotDetected) 04/07/22 05:15 Ur Phencyclidine Scrn Not Detected (NotDetected) 04/07/22 05:15 Ur Amphetamines Screen Not Detected (NotDetected) 04/07/22 05:15 U Methamphetamines Scrn Not Detected (NotDetected) 04/07/22 05:15 U Benzodiazepines Scrn Detected (NotDetected) H 04/07/22 05:15 Urine Cocaine Screen Not Detected (NotDetected) 04/07/22 05:15 U Marijuana (THC) Screen Detected (NotDetected) H 04/07/22 05:15 Serum Alcohol <10 mg/dL 04/07/22 03:46 Coronavirus (PCR) Not Detected (Not Detectd) 04/07/22 02:25 Vital Signs Temp 97.9 F 04/16/22 06:50 Pulse 87 04/16/22 06:50 Resp 18 04/16/22 06:50 BP 113/67 04/16/22 06:50 Pulse Ox 98 04/16/22 06:50 FiO2 Patient Condition at Discharge: Stable Plan - Discharge Summary New Discharge Prescriptions: New Acetaminophen Tab [Tylenol] 650 mg PO Q4HR PRN tab PRN Reason: Pain/Discomfort traZODone HCL [Desyrel] 50 mg PO HS PRN 14 Days tab PRN Reason: Insomnia Paliperidone IM [Invega Sustenna] 156 mg IM QMONTHLY #1 each Discontinued Benztropine Mesylate [Cogentin] 1 mg PO BID 30 Days tab Divalproex ER [Depakote ER] 750 mg PO DAILY 30 Days tab.er.24h haloperidoL [Haldol] 10 mg PO BID 30 Days tab Acetaminophen Tab [Tylenol] 650 mg PO Q4HR PRN tab PRN Reason: Pain/Discomfort Discharge Medication List Acetaminophen Tab [Tylenol] 650 mg PO Q4HR PRN tab 04/16/22 [Rx] Paliperidone IM [Invega Sustenna] 156 mg IM QMONTHLY #1 each 04/16/22 [Rx] traZODone HCL [Desyrel] 50 mg PO HS PRN 14 Days tab 04/16/22 [Rx] Follow up Appointment(s)/Referral(s): [facility] [Outside] - 04/20/22 11:00 am (with bunker worker) None,Stated [Primary Care Provider] - 1-2 days Patient Instructions/Handouts: Schizophrenia (DC) Activity/Diet/Wound Care/Special Instructions: Avoid the use of street drugs and alcohol. Take all prescriptions as prescribed. When you are in need of refills on your medications, please contact your medical provider and/or outpatient psychiatrist to have this done. Please go to scheduled outpatient appointment for aftercare treatment. If symptoms return or become worse, call the crisis line at and/or go to the nearest emergency room for evaluation. Discharge Disposition: HOME SELF-CARE
== END 2022-04-16 10:35 | disposition home or self-care (01) | DRG 885 ==
LOC: EC 23:35 → 3MHU 04-07 04:30
PROVIDERS: ADMIT Psychiatry & Neurology Psychiatry; ATTEND Psychiatry & Neurology Psychiatry
DX: F20.9 Schizophrenia, unspecified (principal); E87.1 Hypo-osmolality and hyponatremia; J45.909 Unspecified asthma, uncomplicated; S10.11XA Abrasion of throat, initial encounter; X78.1XXA Intentional self-harm by knife, initial encounter; K21.9 Gastro-esophageal reflux disease without esophagitis; K40.20 Bilateral inguinal hernia, without obstruction or gangrene, not specified as recurrent; F90.9 Attention-deficit hyperactivity disorder, unspecified type; Z20.822 Contact with and (suspected) exposure to COVID-19; F17.210 Nicotine dependence, cigarettes, uncomplicated; F41.9 Anxiety disorder, unspecified; G89.29 Other chronic pain; M51.9 Unspecified thoracic, thoracolumbar and lumbosacral intervertebral disc disorder; D72.829 Elevated white blood cell count, unspecified; Z88.0 Allergy status to penicillin; Z56.0 Unemployment, unspecified; Z79.899 Other long term (current) drug therapy; Z80.3 Family history of malignant neoplasm of breast
CPT/HCPCS: 36415; 80048; 80053; 80061; 80306; 80320; 81001; 83036; 84443; 85025; 85027; 87635; 96372; 99285

== ENCOUNTER 2024-04-23 11:23 | Emergency (ER) | payer OTHER | END 2024-04-23 12:16 | disposition home or self-care (01) | LOC: EC 11:23 | CPT/HCPCS: 99282 ==

== ENCOUNTER 2024-04-25 14:53 | Inpatient (IN) | payer MEDICAID, OTHER ==
[2024-04-26] MEDS ORDERED: NICOTINE 14MG/24HR PATCH TRANSDERM ONE (08:04)
[2024-04-27] MEDS ORDERED: LITHIUM CARBONATE 300 MG CAP ONE (20:01)
[2024-04-27] MEDS ORDERED: risperiDONE 1 MG TAB ONE (20:01)
[2024-04-28] MEDS ORDERED: LITHIUM CARBONATE 300 MG CAP ONE (19:57)
[2024-04-28] MEDS ORDERED: risperiDONE 1 MG TAB ONE (19:57)
[2024-04-30] MEDS ORDERED: NICOTINE 14MG/24HR PATCH TRANSDERM ONE (08:08)
[2024-04-30] MEDS ORDERED: PANTOPRAZOLE 40 MG TABLET PO ONE (08:09)
[2024-04-30] MEDS ORDERED: LITHIUM CARBONATE 300 MG CAP ONE (08:09)
[2024-05-06] MEDS ORDERED: HALOPERIDOL LACTATE 5 MG/ML 1 ML VIAL IM PRN
[2024-05-06] MEDS ORDERED: MAGNESIUM HYDROXIDE 2,400 MG/30 ML CUP PO PRN
[2024-05-06] MEDS ORDERED: MAG HYDROX/AL HYDROX/SIMETH 355 ML BOTTLE PO PRN
[2024-05-06] MEDS ORDERED: LORazepam 2 MG/ML INJ IM PRN ×2 (05:42)
[2024-05-06] MEDS: NICOTINE 14MG/24HR PATCH TRANSDERM SCH (11:57)
[2024-05-06] MEDS: PANTOPRAZOLE 40 MG TABLET PO SCH (11:57)
[2024-05-06] MEDS: LITHIUM CARBONATE 300 MG CAP PO SCH (11:59)
[2024-05-06] MEDS: PALIPERIDONE 3 MG TAB.ER.24 PO SCH (12:01)
[2024-05-06] MEDS: ACETAMINOPHEN TAB 325 MG TAB PO PRN (20:30)
[2024-05-06] MEDS: PALIPERIDONE 6 MG TAB.ER.24 PO SCH (20:30)
[2024-05-06] MEDS ORDERED: traZODone HCL 50 MG TAB PO PRN (21:00)
[2024-05-07] MEDS: LORazepam 1 MG TAB PO PRN (14:24)
[2024-05-07] MEDS: haloperidoL 5 MG TAB PO PRN (14:24)
--- NOTE | 2024-05-07 17:01 | P.PN ---
Progress Note - Text Progress Note Date: 05/07/24 Follow-up Mediation Review Chief Complaint: I am good. Subjective: The patient has been noticed to be very loud, excited, and agitated. He has had some trouble with another patient since the weekend. He has been irritated and gets upset if this patient comes close to him. The patient is usually redirectable but sometimes he keeps being loud and disruptive on the rome. He received prn Haldol and Ativan this afternoon. The patient has been going to some of the groups. The participation is limited. The interaction with staff and peers is limited. The patient is compliant with treatment recommendations. Leading questions: The patient denied Depression and Anxiety. Denied SI or HI. Denied symptoms consistent with psychosis Sleep and Appetite: Fair. Change in family/ living/job/financial/daily routine: No change. Change in medical condition: No change. Change in medications: No change. Side effects from Medications: None. Objective- MSE: Alert and attentive. Orientation times three. Dressed and Groomed: Appropriately. Pleasant and cooperative. Psychomotor Activity: Normal. Speech: Normal in tone, quality, and quantity. Mood: I feel good. Affect: Labile, excited, agitated. SI or HI: None. Perceptual disturbance: No overt hallucinations noted. Thought Content: Some paranoia noted. No other delusional thinking noted. Thought Process: Normal. Cognition: Intact Judgment and Insight: Poor. AIMS: Normal. Labs: No new labs. Diagnosis: No change. Plan and Recommendations: Continue current Medications. Monitor MS and side effects of medications and adjust medications accordingly. Provide supportive psychotherapy. The patient provided psychoeducation and advised The patient provided Substance abuse counseling. Smoke cessation therapy. The patient to attend rome activities. Medication Consent with explanation of risk/benefits and side effects: Explained and obtained.
--- NOTE | 2024-05-08 15:38 | P.PN ---
Progress Note - Text Progress Note Date: 05/08/24 .Follow-up Mediation Review Chief Complaint: I am good. Subjective: The patient continues to be very loud, excited, and agitated intermittently. He has less agitated and more directable. He is grandiose and paranoid. He paces the [place] and talks to himself. His dose of Invega is increased to 6 mg twice day. The patient explained. He understood and agreed. The patient has been going to some of the groups. The participation is limited. The interaction with staff and peers is limited. The patient is compliant with treatment recommendations. Leading questions: The patient denied Depression and Anxiety. Denied SI or HI. Denied symptoms consistent with psychosis Sleep and Appetite: Fair. Change in family/ living/job/financial/daily routine: No change. Change in medical condition: No change. Change in medications: No change. Side effects from Medications: None. Objective- MSE: Alert and attentive. Orientation times three. Dressed and Groomed: Appropriately. Pleasant and cooperative. Psychomotor Activity: Normal. Speech: Normal in tone, quality, and quantity. Mood: I feel good. Affect: Labile, excited, agitated. SI or HI: None. Perceptual disturbance: No overt hallucinations noted. Thought Content: Some paranoia noted. No other delusional thinking noted. Thought Process: Normal. Cognition: Intact Judgment and Insight: Poor. AIMS: Normal. Labs: No new labs. Diagnosis: No change. Plan and Recommendations: Continue current Medications. Monitor MS and side effects of medications and adjust medications accordingly. Provide supportive psychotherapy. The patient provided psychoeducation and advised The patient provided Substance abuse counseling. Smoke cessation therapy. The patient to attend rome activities. Medication Consent with explanation of risk/benefits and side effects: Explained and obtained.
[2024-05-09 08:24] VITALS: BMI 18.9
[2024-05-09] MEDS: PALIPERIDONE 3 MG TAB.ER.24 PO SCH (09:42)
--- NOTE | 2024-05-09 16:35 | P.PN ---
Progress Note - Text Progress Note Date: 05/09/24 Follow-up Mediation Review Chief Complaint: I am good. Subjective: The patient continues to be loud, excited, and agitated but frequency and intensity is much reduced. He is easily redirected. Overall, patient is showing improvement but remains unpredictatble and can be excited w ith slightest provocation. The patient reported no side effects from increased dose of Invega. He has been compliant with taking Invega. The patient has been going to some of the groups. The participation is limited. The interaction with staff and peers is limited. The patient is compliant with treatment recommendations. Leading questions: The patient denied Depression and Anxiety. Denied SI or HI. Denied symptoms consistent with psychosis Sleep and Appetite: Fair. Change in family/ living/job/financial/daily routine: No change. Change in medical condition: No change. Change in medications: No change. Side effects from Medications: None. Objective- MSE: Alert and attentive. Orientation times three. Dressed and Groomed: Appropriately. Pleasant and cooperative. Psychomotor Activity: Normal. Speech: Normal in tone, quality, and quantity. Mood: I feel good. Affect: Labile, excited, agitated. SI or HI: None. Perceptual disturbance: No overt hallucinations noted. Thought Content: Some paranoia noted. No other delusional thinking noted. Thought Process: Normal. Cognition: Intact Judgment and Insight: Poor. AIMS: Normal. Labs: No new labs. Diagnosis: No change. Plan and Recommendations: Continue current Medications. Monitor MS and side effects of medications and adjust medications accordingly. Provide supportive psychotherapy. The patient provided psychoeducation and advised The patient provided Substance abuse counseling. Smoke cessation therapy. The patient to attend rome activities. Medication Consent with explanation of risk/benefits and side effects: Explained and obtained
[2024-05-10] MEDS: PALIPERIDONE 6 MG TAB.ER.24 PO SCH (09:37)
--- NOTE | 2024-05-10 15:00 | P.PN ---
Progress Note - Text Progress Note Date: 05/10/24 Follow-up Mediation Review Chief Complaint: I am good. Subjective: The patient has shown improvement in his pacing, talking to himself, talking loud. Talking about being [place], about conspiracy therapy. He is much quieter and easily redirectable. \redirected. Overall, patient is showing improvement but remains unpredictable and can be excited with slightest provocation. The patient reported no side effects from medications. He has been compliant with taking Invega. The patient has been going to some of the groups. The participation is limited. The interaction with staff and peers is limited. The patient is compliant with treatment recommendations. Leading questions: The patient denied Depression and Anxiety. Denied SI or HI. Denied symptoms consistent with psychosis Sleep and Appetite: Fair. Change in family/ living/job/financial/daily routine: No change. Change in medical condition: No change. Change in medications: No change. Side effects from Medications: None. Objective- MSE: Alert and attentive. Orientation times three. Dressed and Groomed: Appropriately. Pleasant and cooperative. Psychomotor Activity: Normal. Speech: Normal in tone, quality, and quantity. Mood: I feel good. Affect: Labile. SI or HI: None. Perceptual disturbance: No overt hallucinations noted. Thought Content: Some paranoia noted. No other delusional thinking noted. Thought Process: Normal. Cognition: Intact Judgment and Insight: Poor. AIMS: Normal. Labs: No new labs. Diagnosis: No change. Plan and Recommendations: Continue current Medications. Monitor MS and side effects of medications and adjust medications accordingly. Provide supportive psychotherapy. The patient provided psychoeducation and advised The patient provided Substance abuse counseling. Smoke cessation therapy. The patient to attend rome activities. Medication Consent with explanation of risk/benefits and side effects: Explained and obtained
[2024-05-11 11:48] VITALS: RESP 18
--- NOTE | 2024-05-11 14:16 | P.PN ---
Progress Note - Text Progress Note Date: 05/11/24 Follow-up Mediation Review Chief Complaint: I am good. Subjective: The patient continues to show improvement. He has not been pacing. He is not voicing any delusional things pacing in the hallway. He has not been loud or disruptive. The patient has been compliant with medications. He is much quieter and easily redirectable. Overall, patient is showing improvement but remains unpredictable and can be excited with slightest provocation. The patient reported no side effects from medications. He has been compliant with taking Invega. The patient has been going to some of the groups. The participation is limited. The interaction with staff and peers is limited. The patient is compliant with treatment recommendations. Leading questions: The patient denied Depression and Anxiety. Denied SI or HI. Denied symptoms consistent with psychosis Sleep and Appetite: Fair. Change in family/ living/job/financial/daily routine: No change. Change in medical condition: No change. Change in medications: No change. Side effects from Medications: None. Objective- MSE: Alert and attentive. Orientation times three. Dressed and Groomed: Appropriately. Pleasant and cooperative. Psychomotor Activity: Normal. Speech: Normal in tone, quality, and quantity. Mood: I feel good. Affect: Labile. SI or HI: None. Perceptual disturbance: No overt hallucinations noted. Thought Content: Some paranoia noted. No other delusional thinking noted. Thought Process: Normal. Cognition: Intact Judgment and Insight: Poor. AIMS: Normal. Labs: No new labs. Diagnosis: No change. Plan and Recommendations: Continue current Medications. Monitor MS and side effects of medications and adjust medications accordingly. Provide supportive psychotherapy. The patient provided psychoeducation and advised The patient provided Substance abuse counseling. Smoke cessation therapy. The patient to attend rome activities. Medication Consent with explanation of risk/benefits and side effects: Explained and obtained
[2024-05-11] MEDS: IBUPROFEN 800 MG TAB PO PRN (20:07)
--- NOTE | 2024-05-12 17:13 | XR ---
EXAMINATION TYPE: XR foot limited LT DATE OF EXAM: 05/12/2024 4:53 PM CLINICAL INDICATION: Male, 48 years old with history of Pain and swelling; COMPARISON: None TECHNIQUE: XR foot limited LT examined in the AP, oblique, and lateral projections. FINDINGS: No evidence of any acute osseous pathology. Multifocal degeneration changes throughout the joints of the foot with osteophyte formation and joint space narrowing. IMPRESSION: No evidence of acute fracture. Multifocal degeneration changes throughout the joints of the foot.
--- NOTE | 2024-05-12 19:09 | P.PN ---
Progress Note - Text Progress Note Date: 05/12/24 Interval history: Patient was seen pacing in the hallway and was directable and agreeable to speak with proposal manager writer. The start of our visit he shared "I know you know the truth". 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 Throughout the visit his voice was notably loud and he was rather animated in his presentation he described his mood as "good" and reports that he has been sleeping and eating well. His biggest concern today was pain in his foot which has improved with ibuprofen though he was concerned about a possible fracture and wanted to get further evaluation. He explained that he had been stomping on concrete prior to admission in order to get his family's attention and this resulted in an injury. During the time of our visit he denied suicidal ideation he also denied homicidal ideation intent or plan. He also denied auditory and visual hallucinations. Later he was seen pacing and talking loudly in the hallways intermittently disruptive to other patients and became rather agitated when inquiring about the status of his foot x-ray. Patient denies any side effects from the medications and has been compliant with paliperidone but not compliant with [place]. Mental status exam: General Appearance: Patient appears to be stated age is alert and generally cooperative. Behavior: Observed pacing in the hallway, talking loudly. Patient is mildly agitated and somewhat difficult to redirect back to conversation. Speech: Patient's speech is fluent and rapid. Mood/Affect: Mood is "good", affect is congruent and constricted. Suicidality/Homicidality: Patient denies having any suicidal or homicidal ideation intent or plan. Perceptions: Patient denies any auditory or visual hallucinations. Though content/process: Thought process is elaborative and expansive and tangential. There is evidence of overt delusional thought content in regards to his identity. Memory and concentration: AOX3, grossly intact for the purposes of this session Judgment and insight: Poor Assessment/Plan: Continue with current diagnosis. Patient continues to meet criteria for inpatient psychiatric admission for symptom stabilization and safety. Patient will be maintained on current psychotropic medication regimen: Actively refusing [place] daily; may need to consider second antipsychotic or alternative mood stabilizer given ongoing symptoms and maxed out paliperidone Monitor for medication compliance and for any psychotropic medication side effects. Will continue to monitor ongoing response to treatment. Encouraged participation in milieu.
--- NOTE | 2024-05-13 19:51 | P.PN ---
Progress Note - Text Progress Note Date: 05/13/24 Interval history: Patient was seen in the hallway and was agreeable to step into his room to rowena-in. Describes his mood as "good". He denies any complaints or concerns today. He did have 1 bad dream last night though this was not particularly distressing to him. He also was happy that the foot x-ray did not show any evidence of an acute fracture. Explained his intentions to "do the [facility] thing" after discharge. He also shared that he became aware of his true name today as "Lorenzo Vigil's Son". 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 He denies suicidal ideation, intent, and plan. He also denies homicidal ideation, intent, and plan. He denies experiencing any auditory or visual hallucinations. Of note, he does continue to actively refuse lithium twice daily. Mental status exam: General Appearance: Patient appears to be stated age is alert and generally cooperative. Behavior: More redirectable today. Less irritable. Not observed pacing and talking as loudly. Speech: Patient's speech is fluent and rapid. Mood/Affect: Mood is "good", affect is congruent and euthymic. Suicidality/Homicidality: Patient denies having any suicidal or homicidal ideation intent or plan. Perceptions: Patient denies any auditory or visual hallucinations. Though content/process: Thought process is elaborative and expansive and tangential. There is evidence of overt delusional thought content in regards to his identity. Memory and concentration: AOX3, grossly intact for the purposes of this session Judgment and insight: Poor Assessment/Plan: Continue with current diagnosis. Patient continues to meet criteria for inpatient psychiatric admission for symptom stabilization and safety. Patient will be maintained on current psychotropic medication regimen: Actively refusing [place] daily; may need to consider second antipsychotic or alternative mood stabilizer given ongoing symptoms and maxed out paliperidone Monitor for medication compliance and for any psychotropic medication side effects. Will continue to monitor ongoing response to treatment. Encouraged participation in milieu.
--- NOTE | 2024-05-14 12:30 | P.PN ---
Progress Note - Text Progress Note Date: 05/14/24 Interval history: Patient was seen in the hallway and was agreeable to talk in the office. He described his mood as "good" and feels that he slept well overall. He went on to say that he had some involvement with [employer] officers and this was related to activities happening outside of the hospital. He again reiterated that he is out of boson and this is a highly secretive aspect of his identity and related to why he has been persecuted by government and others. When asked about his review daily refusal of lithium he shared that he only has to take the Invega and had previously discussed with his doctor that he does not have to take the lithium. He did share that after discharge she is hoping that he will be able to get a place through [address] as he knows someone who will be renting apartment soon. His interim plan is to rent a room which she feels he will be able to accomplish as he does receive some disability income. He denies suicidal ideation intent or plan. He also denies homicidal ideation, intent, or plan. He denies experiencing any auditory or visual hallucinations. Of note he was not observed today shouting loudly or pacing in the halls as he had been several days ago. Mental status exam: General Appearance: Patient appears to be stated age is alert and generally cooperative. Behavior: No psychomotor retardation. Improved psychomotor agitation. No abnormal movements. Speech: Patient's speech is fluent and rapid. Louder than conversational volume. Mood/Affect: Mood is "good", affect is congruent and euthymic. Suicidality/Homicidality: Patient denies having any suicidal or homicidal ideation intent or plan. Perceptions: Patient denies any auditory or visual hallucinations. Though content/process: Thought process is elaborative and expansive and tangential. There is evidence of overt delusional thought content in regards to his identity and involvement in government operations. Memory and concentration: Grossly intact for the purposes of this session Judgment and insight: Poor Assessment: - Schizophrenia - Cannabis use disorder Plan: - Patient continues to meet criteria for inpatient psychiatric admission for symptom stabilization and safety. - Patient will be maintained on current psychotropic medication regimen: Continue Invega 6 mg BID. Actively refusing [place] daily. May consider need for secondary agent to support further symptom reduction. - Monitor for medication compliance and for any psychotropic medication side effects. - Will continue to monitor ongoing response to treatment. - Encouraged participation in milieu. - SW to participate in discharge planning.
[2024-05-15 07:27] VITALS: BP 124/83; PULSE 96; TEMP 98
[2024-05-15] MEDS: PALIPERIDONE IM 234 MG/1.5 ML SYG IM STA (14:05)
[2024-05-16] MEDS ORDERED: PALIPERIDONE 3 MG TAB.ER.24 PO SCH (09:00)
--- NOTE | 2024-05-16 12:50 | P.DS ---
Providers Date of admission: 04/25/24 14:53 Expected date of discharge: 05/15/24 Attending physician: Clive Negrete MD Consults: 05/05/24 16:29 Consult Physician Routine Consulting Provider: Doretha Doss Consult Reason/Comments: medical management Do you want consulting provider notified?: Already Contacted Primary care physician: Stated None - Discharge Diagnosis(es) (1) Bipolar disorder, current episode manic severe with psychotic features Status: Acute Priority: High Patient Condition at Discharge: Stable Plan - Discharge Summary New Discharge Prescriptions: New Paliperidone [Invega] 3 mg PO DAILY 7 Days #7 tab Continue Paliperidone IM [Invega Sustenna] 156 mg IM QMONTHLY 1 Days #1 each Discontinued Acetaminophen Tab [Tylenol] 650 mg PO Q4HR PRN tab PRN Reason: Pain/Discomfort traZODone HCL [Desyrel] 50 mg PO HS PRN 14 Days tab PRN Reason: Insomnia Discharge Medication List Paliperidone IM [Invega Sustenna] 156 mg IM QMONTHLY 1 Days #1 each 05/15/24 [Rx] Paliperidone [Invega] 3 mg PO DAILY 7 Days #7 tab 05/15/24 [Rx] Follow up Appointment(s)/Referral(s): Care, Yes [Other] - 05/15/24 4:00 pm (Intake) Patient Instructions/Handouts: Schizophrenia (DC), Cannabis Abuse (DC) Activity/Diet/Wound Care/Special Instructions: Avoid the use of street drugs and alcohol. Take all medications as prescribed. When you are in need of refills on your medications, please contact your medical provider and/or outpatient psychiatrist/provider to have this done. Please go to your scheduled outpatient appointment for aftercare treatment. If symptoms return or become worse, call the crisis line at and/or go to the nearest emergency room for evaluation. National Suicide Hotline [address] [facility] confidentiality statement: "The information contained in this communication, including attachments, is confidential, may be privileged, and is intended only for the use of the named recipient(s). Unauthorized use, disclosure, forwarding or copying is strictly prohibited and may be unlawful. If you have received this communication in error, please notify me IMMEDIATELY at the phone number or pager listed above.
--- NOTE | 2024-06-07 14:47 | PN ---
PROGRESS NOTE SUBJECTIVE: The patient was seen, the chart was reviewed, and the case was discussed with the nursing staff. The patient reports that he has been hospitalized at least about four different occasions. The patient states that he currently lives with his sister. He reports that he does not use any other drugs, but he agrees that he does use cannabis. He states that he is currently on disability. The patient reports that he feels that he is making progress and that the medications do seem to be helping. MENTAL STATUS EXAMINATION: Reveals a middle aged male, who appears in no acute distress. The patient's affect flat. Speech is clear, coherent and random thought process, goal directed, sequential, logical. The patient denies any suicidal or homicidal ideations. Overall, he remains cooperative. PLAN: We will continue current medications as prescribed, continue supportive care. No change in medications recommended at this time. MMVALL / IJN: [id number] /
== END 2024-05-15 15:41 | DRG 753 ==
LOC: 3MHU 14:53
PROVIDERS: ADMIT Psychiatry & Neurology Psychiatry; ATTEND Psychiatry & Neurology Psychiatry
DX: F31.2 Bipolar disorder, current episode manic severe with psychotic features (principal); F12.10 Cannabis abuse, uncomplicated; Z11.52 Encounter for screening for COVID-19; Z53.29 Procedure and treatment not carried out because of patient's decision for other reasons; Z71.3 Dietary counseling and surveillance; Z88.0 Allergy status to penicillin; M79.673 Pain in unspecified foot; Z79.899 Other long term (current) drug therapy
CPT/HCPCS: 80061; 82075; 83036; 87636; 99285